=== PATIENT | female | born 2000 | race Caucasian/White ===

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

== ENCOUNTER → 2019-09-27 | Outpatient (CLI) | payer MEDICAID ==
[~2019-09-27] MED LIST changes: +ACET-78 PO
--- NOTE | 2019-09-27 11:02 | Diagnostic Imaging Report ---
INDICATION: Size and dates. TECHNIQUE: Multiple real-time grayscale images were obtained over the gravid uterus. COMPARISON: None FINDINGS: There is a single living intrauterine . Amniotic fluid index is 16.28. Placenta is posterior and right. There is no previa. Anatomical survey is unremarkable apart from somewhat limited view of the four-chambered heart. Heart rate is 142 bpm. Cervical length is 6.9 cm. Biometrical measurements are as follows: Biparietal 4.58 cm, age 19 weeks 6 days. Head circumference 17.09 cm, age 19 weeks 5 days. Abdominal circumference 14.41 cm, age 19 weeks 6 days. Femur length 3.36 cm, age 20 weeks 4 days. Sonographic estimate age: 20 weeks 0 days. Sonographic estimated date of delivery: 02/14/2020. Estimated Weight: 330 gm (+/- 48 gm). LMP percentile: 26%. heart rate: 142 beats per minute. number: 1 of 1. IMPRESSION: Single living intrauterine with sonographically estimated gestational age of 20 weeks 0 days and estimated date of confinement February 14, 2020. Suboptimal images of the four-chambered heart due to lie. Otherwise, unremarkable anatomical survey. Dictated by: Dictated on workstation # [id number]
== END ==
LOC: RAD 09:45
PROVIDERS: ATTEND Obstetrics & Gynecology
DX: Z34.92 Encounter for supervision of normal pregnancy, unspecified, second trimester (principal); Z3A.20 20 weeks gestation of pregnancy
CPT/HCPCS: 76805

== ENCOUNTER → 2019-12-09 | Outpatient (CLI) | payer MEDICAID ==
--- NOTE | 2019-12-09 12:07 | Diagnostic Imaging Report ---
INDICATION: Follow-up four-chamber heart and growth. TECHNIQUE: Multiple real-time grayscale images were obtained over the gravid uterus. COMPARISON: 09/27/2019. FINDINGS: There is a single live fetus in a transverse presentation, head to the maternal left. heart rate was visualized but not recorded. Placenta is posterior. Cervical length is 5.8 cm. Four-chamber heart view was visualized. Biometrical measurements are as follows: Biparietal 7.97 cm, age 32 weeks 0 days. Head circumference 28.78 cm, age 31 weeks 5 days. Abdominal circumference 26.54 cm, age 30 weeks 5 days. Femur length 5.82 cm, age 30 weeks 3 days. Sonographic estimate age: 31 weeks 2 days. Sonographic estimated date of delivery: 02/08/2020. Estimated Weight: 1639 gm (+/- 239 gm). LMP percentile: 35%. heart rate: N/A beats per minute. number: 1 of 1. IMPRESSION: Single live IUP of approximately 31 weeks gestational age, showing normal interval growth when compared with prior exam. A four-chamber heart view was visualized on today's exam. Dictated by: Dictated on workstation # [id number]
== END ==
LOC: RAD 10:50
PROVIDERS: ATTEND Obstetrics & Gynecology
DX: O16.3 Unspecified maternal hypertension, third trimester (principal); O09.292 Supervision of pregnancy with other poor reproductive or obstetric history, second trimester; R21 Rash and other nonspecific skin eruption; Z04.89 Encounter for examination and observation for other specified reasons; Z3A.31 31 weeks gestation of pregnancy
CPT/HCPCS: 76805

== ENCOUNTER 2020-01-28 12:24 | Inpatient (IN) | payer MEDICAID ==
[2020-01-28] VITALS (44 sets, daily range): BP systolic 100–141; BP diastolic 51–70
[~2020-01-28] VITALS: Ht 157.5 cm; Wt 85.5 kg
--- NOTE | 2020-01-28 12:33 | NUR ---
YANIRA DODGE presented to unit via AMBULATORY from ED, accompanied by S/O, with c/o DEMISE. YANIRA DODGE weighed, gowned, voided, and to bed. EFHM and TOCO applied, VS taken. YANIRA DODGE oriented to bed controls, call light, TV, heat, and A/C controls.
[2020-01-28] MEDS ORDERED: OXYTOCIN PRE-MIX DRIP 500 ML IV SCH (12:35)
[2020-01-28] MEDS ORDERED: ALPRAZolam 0.5 MG (XANAX) TAB PO PRN (12:45)
[2020-01-28] MEDS ORDERED: MISOPROSTOL 200 MCG (CYTOTEC) TABLET PO ONE (12:45)
[2020-01-28] MEDS ORDERED: HYDROmorphone 2 MG/ML VIAL (DILAUDID) IV PRN (12:45)
[2020-01-28 13:15] LABS: BASOPHILS % (AUTO) 0 % (0-10); EOSINOPHILS # (AUTO) 0.1 10^3/uL (0.0-0.3); EOSINOPHILS % (AUTO) 1 % (0-10); HEMATOCRIT 34 % (35-52); HEMOGLOBIN 11.3 G/DL (11.5-16.0); LYMPHOCYTES # (AUTO) 2.7 X 10^3 (1.0-4.0); LYMPHOCYTES % (AUTO) 16 % (12-44); MEAN CORPUSCULAR HEMOGLOBIN 29 PG (25-34); MEAN CORPUSCULAR HGB CONC 33 G/DL (32-36); MEAN CORPUSCULAR VOLUME 88 FL (80-99); MEAN PLATELET VOLUME 10.4 FL (7.4-10.4); MONOCYTES # (AUTO) 1.5 X 10^3 (0.0-1.0); MONOCYTES % (AUTO) 9 % (0-12); NEUTROPHILS # (AUTO) 12.4 X 10^3 (1.8-7.8); NEUTROPHILS % (AUTO) 74 % (42-75); PLATELET COUNT 231 10^3/uL (130-400); WHITE BLOOD COUNT 16.6 10^3/uL (4.3-11.0)
[2020-01-28 13:23] LABS: AMPHETAMINE SCREEN, URINE NEGATIVE (NEGATIVE); BARBITURATE SCREEN URINE NEGATIVE (NEGATIVE); BENZODIAZEPINES SCREEN URINE NEGATIVE (NEGATIVE); CANNABINOID SCREEN, URINE NEGATIVE (NEGATIVE); COCAINE SCREEN URINE NEGATIVE (NEGATIVE); METHADONE STAT NEGATIVE (NEGATIVE); METHAMPHETAMINE SCREEN URINE S NEGATIVE (NEGATIVE); OPIATE SCREEN URINE NEGATIVE (NEGATIVE); OXYCODONE STAT NEGATIVE (NEGATIVE); PROPOXYPHENE STAT NEGATIVE (NEGATIVE); TRICYCLIC ANTIDEPRESSANTS SCRE NEGATIVE (NEGATIVE)
--- NOTE | 2020-01-28 13:28 | History & Physical-OB ---
OB - Chief Complaint & HPI Date/Time Date of Admission: Date of Admission: Jan 28, 2020 at 12:24 pm Date seen by a Provider: Jan 28, 2020 Time Seen by a Provider: 11:35 Chief Complaint/History OB-Reason for Admission/Chief: Hx : 3 Hx Para: 2 Expected Date of Delivery: Feb 11, 2020 Gestational Age in Weeks: 38 Gestational Age in Days: 0 Indication for induction: other (IUFD) Admission Nurse Assessment Rev: Yes History of Labs A neg Antibody neg RI RPR NR HBsAg NR HIV NR GC neg GBS neg Allergies and Home Medications Allergies Coded Allergies: No Known Drug Allergies (Unverified , 01/15/13) Home Medications Acetaminophen 500 Mg Tablet, 1,000 MG PO Q6HR Prescribed by: ROMMEL MCGOVERN on 10/13/18 1042 Calcium Carbonate 1,177 Mg Tab.chew, 1,177 MG PO TID, (Reported) Ferrous Sulfate 325 Mg Tablet, 325 MG PO DAILY, (Reported) Ibuprofen 600 Mg Tablet, 600 MG PO Q6HR Prescribed by: ROMMEL MCGOVERN on 10/13/18 1042 Vit No.124/Iron/FA 1 Each Tablet, 1 EACH PO DAILY, (Reported) Patient Home Medication List Home Medication List Reviewed: Yes OB - History Hx of Present Care: Yes Ultrasounds: Abnormal US findings (Absent cardiac activity on US, no cord blood movement noted.) Obstetrical Complications: None Medical Complications: None Obstetrical History Hx Termination: No Hx Multiple Gestation: No Hx Stillbirth: No Hx Complication: No Hx Induced Hypertens: No Hx Maternal Gestational Diabet: No Delivery History Hx Dystocia: No Hx Large For Gestational Age I: Yes Hx Small for Gestational Age I: No Hx Section: No Hx Vaginal Delivery Post C-Sec: No Hx Blood Disorders: No Patient Past Medical History NC Social History/Family History HIV/AIDS: No Sexually Transmitted Disease: No Immunizations Hepatitis A: No Hepatitis B: Yes Tetanus Booster (TDap): Less than 5yrs OB - Admission Exam Physical Exam HEENT: NCAT Heart: Rhythm Normal Lungs: Clear Abdomen: Gravid Extremities: Normal Reflexes: Normal Cervical Dilatation: 1cm Effacement: 75% Station: -1 Membranes: Intact Labs Laboratory Tests Test 01/28/20 12:58 Range/Units White Blood Count 16.6 H 4.3-11.0 10^3/uL Red Blood Count 3.89 L 4.35-5.85 10^6/uL Hemoglobin 11.3 L 11.5-16.0 G/DL Hematocrit 34 L 35-52 % Mean Corpuscular Volume 88 80-99 FL Mean Corpuscular Hemoglobin 29 25-34 PG Mean Corpuscular Hemoglobin Concent 33 32-36 G/DL Red Cell Distribution Width 14.8 H 10.0-14.5 % Platelet Count 231 130-400 10^3/uL Mean Platelet Volume 10.4 7.4-10.4 FL Neutrophils (%) (Auto) 74 42-75 % Lymphocytes (%) (Auto) 16 12-44 % Monocytes (%) (Auto) 9 0-12 % Eosinophils (%) (Auto) 1 0-10 % Basophils (%) (Auto) 0 0-10 % Neutrophils # (Auto) 12.4 H 1.8-7.8 X 10^3 Lymphocytes # (Auto) 2.7 1.0-4.0 X 10^3 Monocytes # (Auto) 1.5 H 0.0-1.0 X 10^3 Eosinophils # (Auto) 0.1 0.0-0.3 10^3/uL Basophils # (Auto) 0.0 0.0-0.1 10^3/uL OB - Assessment/Plan/Diagnosis Assessment Assessment: induction of labor Admission Dx 19 yo @ 38 weeks IUFD GBS neg Admission Status: Inpatient Order (span 2 midnights) Reason for Inpatient Admission: IUFD at 38 weeks Plan Plan: Induction PAULA DOUGLASS DO Jan 28, 2020 1:28 pm
[2020-01-28 13:30] LABS: BAND NEUTROPHILS 6 %; EOSINOPHILS % (MANUAL) 1 %; LYMPHOCYTES % (MANUAL) 18 %; MONOCYTES % (MANUAL) 9 %; NEUTROPHILS % (MANUAL) 63 %
[2020-01-28 13:31] LABS: ANISOCYTOSIS SLIGHT; ATYPICAL LYMPHOCYTES 1 %; REACTIVE LYMPHOCYTES 2 %
[2020-01-28 13:32] LABS: ALANINE AMINOTRANSFERASE 7 U/L (0-55); ALBUMIN 3.6 GM/DL (3.2-4.5); ALKALINE PHOSPHATASE 116 U/L (40-136); BILIRUBIN,TOTAL 0.3 MG/DL (0.1-1.0); BUN/CREATININE RATIO 14; CALCIUM 9.5 MG/DL (8.5-10.1); CARBON DIOXIDE 17 MMOL/L (21-32); CHLORIDE 107 MMOL/L (98-107); CREATININE SERUM 0.56 MG/DL (0.60-1.30); GFR ESTIMATED > 60; GLUCOSE 81 MG/DL (70-105); POTASSIUM 3.9 MMOL/L (3.6-5.0); SODIUM 135 MMOL/L (135-145); TOTAL PROTEIN 7.2 GM/DL (6.4-8.2)
[2020-01-28] MEDS ORDERED: fentaNYL 2 mcg/ml BUPIVA 0.125 100 ML ONE (13:37)
[2020-01-28] MEDS ORDERED: CATHETER FLUSH 10 ML SYR IV SCH (14:00)
[2020-01-28] MEDS ORDERED: fentaNYL INJECTION 100 MCG/2 ML AMP ONE (14:08)
[2020-01-28] MEDS: D5 LR IV SOLUTION 1,000 ML IV SCH ×2 (14:25→22:18)
[2020-01-28] MEDS: EPIDURAL (fentaNYL 2 MCG/ML BUPIVA 0.125%)100 ML BAG EPI PRN ×2 (14:37→22:19)
[2020-01-28] MEDS ORDERED: DIPH25CA79 PO (15:03)
[2020-01-28] MEDS ORDERED: FLUT9.9S NS (15:03)
[2020-01-28] MEDS ORDERED: LACTATED RINGERS 1,000 ML IV ONE ×2 (15:05)
[2020-01-28] MEDS ORDERED: fentaNYL INJECTION 100 MCG/2 ML AMP INJ ONE (15:15)
[2020-01-28] MEDS ORDERED: NALOXONE 0.4 MG/ML 1 ML (NARCAN) VIAL IV PRN (15:15)
[2020-01-28] MEDS ORDERED: ONDANSETRON 4 MG/2 ML (SDV) Z0FRAN IV PRN (15:15)
--- NOTE | 2020-01-28 19:50 | NUR ---
Dr. Henning called unit and spoke to this RN for update on patient. Will notify with SVE.
--- NOTE | 2020-01-28 19:57 | NUR ---
Dr. Henning notified of SVE. No new orders at this time.
[2020-01-29] VITALS (19 sets, daily range): BP systolic 101–139; BP diastolic 53–90
[2020-01-29] MEDS ORDERED: OXYTOCIN PRE-MIX DRIP 500 ML IV SCH (02:13)
[2020-01-29] MEDS ORDERED: WITCH HAZEL(TUCKS) 40 EA JAR TOP PRN (02:15)
[2020-01-29] MEDS ORDERED: TETANUS,DIPTH,PERTUSS P/F (BOOSTRIX) 0.5 ML VIAL IM ONE (02:15)
[2020-01-29] MEDS ORDERED: MEASLES,MUMPS,RUBELLA 1 EA INJ SQ ONE (02:15)
[2020-01-29] MEDS ORDERED: BENZOCAINE/MENTHOL (DERMOPLAST) 60 ML CAN TP PRN (02:15)
--- NOTE | 2020-01-29 02:21 | OB Labor & Delivery Record ---
L&D History Date of Service Date of Service: Jan 29, 2020 History Expected Date of Delivery: Feb 11, 2020 Gestational Age in Weeks: 38 Hx : 3 Hx Para: 2 Complications Events: Routine care (IUFD found at 38 weeks) Operative Indications (Cesarea: N/A-Vaginal Delivery Intrapartal Events: None (IUFD) L&D Stage1 Stage One Onset of Labor - Date: Jan 28, 2020 Monitors and Tracing Monitor Mode: None Heart Rate: 0 Presentation: Vertex Vital Signs VS - Last 72 Hours, by Label 01/28/20 01/28/20 01/28/20 01/28/20 14:06 14:17 14:20 14:23 Temp 37.4 Pulse 109 111 110 112 Resp 18 18 18 18 B/P (MAP) 118/59 (78) 130/56 (80) 121/60 (80) Pulse Ox 98 98 98 97 O2 Delivery Room Air Room Air Room Air Room Air 01/28/20 01/28/20 01/28/20 01/28/20 14:26 14:29 14:32 14:36 Pulse 109 104 126 114 Resp 18 18 18 18 B/P (MAP) 117/58 (77) 117/55 (75) 130/70 (90) 122/64 (83) Pulse Ox 97 97 99 96 O2 Delivery Room Air Room Air Room Air Room Air 01/28/20 01/28/20 01/28/20 01/28/20 14:39 14:57 15:15 15:30 Pulse 113 108 97 99 Resp 18 18 18 18 B/P (MAP) 113/53 (73) 120/63 (82) 110/57 (74) 115/57 (76) Pulse Ox 97 96 96 96 O2 Delivery Room Air Room Air Room Air Room Air 01/28/20 01/28/20 01/28/20 01/28/20 15:45 16:04 16:32 16:48 Pulse 100 106 102 106 Resp 18 18 18 18 B/P (MAP) 105/59 (74) 109/55 (73) 110/57 (74) 102/58 (73) Pulse Ox 95 95 96 95 O2 Delivery Room Air Room Air Room Air Room Air 01/28/20 01/28/20 01/28/20 01/28/20 17:01 17:16 17:34 17:48 Pulse 107 108 111 106 Resp 18 18 18 18 B/P (MAP) 113/64 (80) 121/63 (82) 141/61 (87) 109/57 (74) Pulse Ox 96 98 96 96 O2 Delivery Room Air Room Air Room Air Room Air 01/28/20 01/28/20 01/28/20 01/28/20 18:11 18:18 18:32 18:47 Pulse 106 104 99 111 Resp 18 18 18 18 B/P (MAP) 125/57 (79) 118/56 (76) 110/58 (75) 120/56 (77) Pulse Ox 96 97 97 96 O2 Delivery Room Air Room Air Room Air Room Air 01/28/20 01/28/20 01/28/20 01/28/20 19:00 19:15 19:30 19:45 Temp 37.3 Pulse 107 104 103 108 Resp 18 18 18 16 B/P (MAP) 112/59 (76) 112/59 (76) 100/57 (71) 106/55 (72) Pulse Ox 95 96 97 95 O2 Delivery Room Air Room Air Room Air Room Air 01/28/20 01/28/20 01/28/20 01/28/20 20:00 20:15 20:30 20:45 Pulse 102 104 112 113 Resp 16 16 16 16 B/P (MAP) 106/51 (69) 111/53 (72) 113/53 (73) 109/53 (71) Pulse Ox 98 97 97 96 O2 Delivery Room Air Room Air Room Air Room Air 01/28/20 01/28/20 01/28/20 01/28/20 21:00 21:15 21:30 21:45 Temp 36.7 Pulse 109 104 103 109 Resp 16 16 16 16 B/P (MAP) 109/59 (76) 112/56 (74) 111/58 (75) 107/55 (72) Pulse Ox 96 96 96 96 O2 Delivery Room Air Room Air Room Air Room Air 01/28/20 22:00 Pulse 111 Resp 16 B/P (MAP) 112/57 (75) Pulse Ox 96 O2 Delivery Room Air Rupture of Membranes Spontaneous Ruture of Membrane: No Amniotic Membrane Rupture Time: 1704 Amniotic Membrane Fluid Desc.: Clear Vaginal Bleeding Description: Normal Show Induction/Anesthesia Epidural Cath Placement - Time: 1428 Progress/Notes Patient confirmed in office with US to have IUFD. Admitted and given 200 mcg misoprostol, followed by Pitocin per protocol and AROM(clear fluid). She received an epidural and progressed to complete and + 2 station with minimal discomfort L&D Stage2 Stage Two Stage II Date: Jan 29, 2020 Monitors and Tracing Monitor Mode: None Heart Rate: 0 Position: Right Occiput Anterior Presentation: Vertex Cord Descript/Complications Cord Vessel Description: 3 Vessels Delivery Type Delivery Method: Spontaneous Vaginal Episiotomy/Perineal Laceration Laceraction(s)/Extensions: No Condition of Infant Delivery 1 minute Comment: 0 5 minute Comment: 0 Notes Still born male infant, weight pending Condition of Infant Condition of : Stillborn Exam: No Observed Abnormalities L&D Stage3 Stage Three Stage III Date: Jan 29, 2020 Pictocin Pitocin Administration mu/min: 14 Pitocin ml/hr: 14 Pitocin Administration Comment: 30 mu wide open after delivery of placenta Anerobic and aerobic cultures collected of both maternal and side of placenta Placenta Delivery Placenta Delivery: Spontaneous Delivery Summary Summary Estimated blood loss (mL): 200 Attending at delivery: Paula Douglass DO Condition of Delivery Examined: Cervix Examined, Uterus Explored Post Hemorrhage: No Condition of Mother stable Condition of Infant (s) PAULA DOUGLASS DO Jan 29, 2020 02:21
[2020-01-29] MEDS ORDERED: IBUPROFEN 600 MG (MOTRIN) TAB PO ONE (02:32)
[2020-01-29] MEDS: IBUPROFEN 600 MG (MOTRIN) TAB PO SCH ×2 (02:39→08:44)
[2020-01-29] MEDS: HYDROcodone/APAP 5 MG/325 MG (LORTAB) TAB PO PRN ×2 (02:39→08:43)
[2020-01-29] MEDS ORDERED: CATHETER FLUSH 10 ML SYR IV SCH (06:00)
--- NOTE | 2020-01-29 06:00 | NUR ---
Patient assisted to wheelchair, Right leg still numb and patient unable to bear compete weight on it. Patient transferred to room 303 via wheelchair, accompanied by staff and . Patient assisted from wheelchair to toilet. Positive void noted. Patient assisted back to wheelchair and then to bed. Patient oriented to room, call light, thermostat, and dietary menu. Infant in cuddle cot at bedside. No questions or concerns voiced at this time.
[2020-01-29] MEDS ORDERED: PRENATAL VITAMIN 1 EA TAB PO SCH (07:00)
--- NOTE | 2020-01-29 07:00 | NUR ---
REPORT FROM CHARLIE MCELROY
--- NOTE | 2020-01-29 07:30 | NUR ---
CONDOLENCE TRAY ORDERED, INITIAL ASSESSMENT COMPLETED, SEE INTERVENTIONS FOR DETAILED ASSESSMENTS, INFANT REMAINS AT PARENTS BEDSIDE, MOTHER VERY TEARFUL, EMOTIONAL SUPPORT OFFERED.
--- NOTE | 2020-01-29 07:40 | Discharge Inst-Women's Service ---
Discharge Inst-Women's Serv Depart Medication/Instructions New, Converted or Re-Newed RX: RX on Chart Final Diagnosis PPD 0 IUFD Vaginal delivery Problems Reviewed?: Yes Consults/Follow Up Additional Follow Up: Yes Orders/Referrals Dr. Proctor in 6 weeks Activity Activity: Activity as Tolerated Driving Instructions: No Driving for 1 Week NO SMOKING: NO SMOKING Nothing Inside Vagina: No Douching, No [place], No Tampons Diet Discharge Diet: No Restrictions Symptoms to Report to : Bleeding Excessive, Pain Increased, Fever Over 101 Degrees F, Vaginal Bleeding Increase, Questions/Concerns For Any Problems or Questions: Contact Your Physician PAULA DOUGLASS DO Jan 29, 2020 07:40
[2020-01-29] MEDS ORDERED: ALPR0.5T7 PO (07:42)
[2020-01-29] MEDS ORDERED: DCS100C PO (07:42)
[2020-01-29] MEDS ORDERED: BENZ78AE5 TP (07:42)
[2020-01-29] MEDS ORDERED: IBUP-844 PO (07:42)
[2020-01-29] MEDS ORDERED: ACHD5005 PO (07:42)
--- NOTE | 2020-01-29 07:45 | NUR ---
IV DC'D, PT UP TO SHOWER.
--- NOTE | 2020-01-29 08:00 | NUR ---
DR DOUGLASS HERE NEW ORDERS RECEIVED, [facility] CALLED, CHARGE POSTER NOTIFIED BY PHONE.
--- NOTE | 2020-01-29 08:20 | NUR ---
MEDICAL RECORDS HERE FOR CERTIFICATE
--- NOTE | 2020-01-29 08:35 | NUR ---
DR SNYDER CALLED VISITED WITH THIS RN ABOUT DEMISE.
--- NOTE | 2020-01-29 08:45 | NUR ---
[facility] HERE
[2020-01-29] MEDS ORDERED: FERROUS SULF 325 MG (IRON) TAB PO SCH (09:00)
[2020-01-29] MEDS ORDERED: DOCUSATE SODIUM 100 MG (COLACE) CAP PO SCH (09:00)
--- NOTE | 2020-01-29 09:05 | NUR ---
PAIN MEDICINE PHYSICIAN HERE, MORTUARY RELEASE SIGNED BY MOTHER, AUTOPSY RELEASE REFUSED, PHOTO TOUCH UPS BY NOW I LAY ME DOWN TO SLEEP SIGNED BY MOTHER.
--- NOTE | 2020-01-29 09:35 | NUR ---
CM/SS: Visited with pt and spouse as per consult related to miscarriage and demise Plan: Pt will return home and baby will be released to the Home Summary: Pt is holding the child at the time of the visit. Pt is tearful and spouse is at the bedside. This worker offers emotional support and discusses physician follow up as well as self care and mental health counseling if needed, mother reports having been in counseling before. Both verbalize understanding. Pt reports that baby is bleeding and does want to change his blankets. This worker goes and gets two blankets from staff, and returns to the room. Mom does rewrap baby and holds the child very close to her. She continues to be tearful. Mother does indicate that she has support with her family in the area[place] [place]) spouse reports he has family an hour away and a few friends in the area. He also reports the story is a long one about his family, and shares he would not go into it at this time. They are reminded they are fortunate to have each other. Spouse has two other children that he is unable to see, as they are in the custody of their mothers. They report it was so close to time of delivery and upon going to the appointment there was not heartbeat, so unexpected. They are encouraged that many parents have been able to try again in the future after a loss. They seemed a little encouraged by this. This worker continues to be present to allow them time. They both are tearful. This worker shares with them she will allow them some time alone and ended the visit. Follow up/information given to the assigned RN for pt.
--- NOTE | 2020-01-29 10:37 | Anesthesia-Regional Post-Op ---
Regional Patient Condition Mental Status: Alert, Oriented x3 Circulation: Same as Pre-Op Headache: Absent Sensation: Full Recovery Motor Block: Absent Post Op Complications Complications None Follow Up Care/Instructions Patient Instructions None needed. Anesthesia/Patient Condition Patient is doing well, no complaints, stable vital signs, no apparent adverse anesthesia problems. No complications reported per nursing. D/C home per [facility] [place] Criteria: Yes CLEMENTE HARLEY CRNA Jan 29, 2020 10:37
--- NOTE | 2020-01-29 12:10 | NUR ---
RHOGAM GIVEN PER ORDER
--- NOTE | 2020-01-29 12:15 | NUR ---
DISCHARGE INSTRUCTIONS EXPLAINED TO PT, PT VERBALIZES UNDERSTANDING, SIGNED, NO QUESTIONS NOTED. WAITING ON FAMILY TO PICK THEM UP.
--- NOTE | 2020-01-29 12:50 | NUR ---
YANIRA DODGE demonstrates understanding of discharge instructions and accurately returns instructions upon questioning. Copy of Post-Discharge Instructions given to PT. YANIRA DODGE is able to manage continuing needs after discharge. Patients belongings returned to . Patient discharged from 330- on 01/29/20 at 1250. YANIRA DODGE left floor via , accompanied by . [facility] CALLED FOR . TAKEN TO [facility] WITH THIS RN [facility] ARRIVES.
== END 2020-01-29 12:50 | disposition home or self-care (01) | DRG 807 ==
LOC: LDRP 12:24
PROVIDERS: ADMIT Obstetrics & Gynecology; ATTEND Obstetrics & Gynecology
PROC: 3E0DXGC Introduction of Other Therapeutic Substance into Mouth and Pharynx, External Approach (ICD-10-PCS; 2020-01-28)
PROC: 10E0XZZ Delivery of Products of Conception, External Approach (ICD-10-PCS; principal; 2020-01-29)
DX: O36.4XX0 Maternal care for intrauterine death, not applicable or unspecified (principal); Z37.1 Single stillbirth; Z3A.38 38 weeks gestation of pregnancy
CPT/HCPCS: 36415; 80053; 80306; 81241; 83033; 83036; 85007; 85027; 85610; 85705; 85730; 86644; 86645; 86747; 86777; 86778; 86850; 86900; 86901; 87070; 87075; 87205

== ENCOUNTER 2020-06-09 02:18 | Emergency (ER) | payer MEDICAID ==
[~2020-06-09] VITALS: Ht 157.4 cm; Wt 85.5 kg
[~2020-06-09 02:18] MED LIST changes: +ALPR0.5T7 PO; +BENZ78AE5 TP; +DCS100C PO; +DIPH25CA79 PO; +FLUT9.9S NS
[2020-06-09 03:20] VITALS: BP_SYST 117; BP_SYST 120; BP_SYST 128; BP_DIAS 74; BP_DIAS 91; BP_DIAS 96
--- NOTE | 2020-06-09 04:44 | ED Psychosocial ---
General Chief Complaint: General Problems/Pain Stated Complaint: CHEST TIGHTNESS,DIZZY,WEAK,FEELS LIKE BLACKING OUT Source: patient Exam Limitations: no limitations History of Present Illness Date Seen by Provider: Jun 09, 2020 Time Seen by Provider: 04:09 Initial Comments Patient presents ER by private conveyance with chief complaint of while she was laying down around 2 or 3:00 in the morning and watching TV she started feeling panicky and when she stood up her heart started racing palpating in her chest. She says this lasted for a few seconds to minutes and went away spontaneously and has came back a few times just lasting a few minutes at the most. She does have anxiety but says she is never had panic attacks this bad before. She does not take anything to abort panics. She follows with Dr. Morales. She is not on control presently. He denies any history of heart disorders but says her mom has had to have stents and peripheral stents and smokes. The patient states she smokes as well. She is worried that because of her mother's medical history that she will be having a heart attack tonight. She denies a history of pots. S she has been referred to one of the local surgeons for her diarrhea since Jan concern for IBS. She has several family members with IBS. Allergies and Home Medications Allergies Coded Allergies: No Known Drug Allergies (Unverified , 01/15/13) Home Medications Alprazolam 0.5 Mg Tablet, 0.5 MG PO Q8H PRN for ANXIETY Prescribed by: PAULA DOUGLASS on 01/29/20 0742 Benzocaine/Menthol 78 Gm Aerosol, 56 ML TP UD PRN for PAIN- SEE INSTRUCTIONS Prescribed by: PAULA DOUGLASS on 01/29/20741 Calcium Carbonate 1,177 Mg Tab.chew, 1,177 MG PO TID, (Reported) Docusate Sodium 100 Mg Capsule, 100 MG PO BID PRN for CONSTIPATION-1ST LINE Prescribed by: PAULA DOUGLASS on 01/29/20 07 Fluticasone Propionate 9.9 Ml [place].susp, 1 SPRAY NS DAILY, (Reported) 1 SPRAY EACH NARE DAILY Hydrocodone/Acetaminophen 1 Each Tablet, 1 TAB PO Q4H PRN for PAIN-MODERATE (5- 7) Prescribed by: PAULA DOUGLASS on 01/29/20 0742 Ibuprofen 600 Mg Tablet, 600 MG PO Q6HR Prescribed by: PAULA DOUGLASS on 01/29/20 0742 Vit No.124/Iron/FA 1 Each Tablet, 1 EACH PO DAILY, (Reported) Patient Home Medication List Home Medication List Reviewed: Yes Review of Systems Constitutional: No chills, No diaphoresis; dizziness (On standing) EENTM: No ear discharge, No ear pain Respiratory: No cough, No short of breath Cardiovascular: see HPI, chest pain; No Hx of Intervention; palpitations; No syncope Gastrointestinal: No abdominal pain, No constipation, No diarrhea, No nausea, No vomiting Genitourinary: No discharge, No dysuria : No Control/STD Prophylaxis: None Musculoskeletal: No back pain, No joint pain Skin: No pruritus, No rash Psychiatric/Neurological: Denies Headache, Denies Numbness All Other Systems Reviewed Negative Unless Noted: Yes Past Lnygick-Ufrwqi-Xdorlv Hx Patient Social History Alcohol Use: Denies Use Smoking Status: Current Everyday Smoker Type Used: Cigarettes Recent Hopitalizations: No Immunizations Up To Date Tetanus Booster (TDap): Less than 5yrs PED Vaccines UTD: Yes Seasonal Allergies Seasonal Allergies: No Past Medical History Surgeries: Yes Respiratory: Yes Asthma Cardiac: No Neurological: No Female Reproductive Disorders: Denies Sexually Transmitted Disease: No HIV/AIDS: No Genitourinary: No Gastrointestinal: No Gastroesophageal Reflux, Gall Bladder Disease Musculoskeletal: No Endocrine: No HEENT: No Loss of Vision: Denies Hearing Impairment: Denies Cancer: No Psychosocial: Yes Anxiety, Bipolar, Depression Integumentary: No Blood Disorders: No Adverse Reaction/Blood Tranf: No Family Medical History Alcoholism PATERNAL GRANDFATHER Arthritis MATERNAL GRANDMOTHER PATERNAL GRANDFATHER Cardiovascular disease 19 MOTHER MATERNAL GRANDMOTHER Cataracts MATERNAL GRANDMOTHER Completed stroke MATERNAL GRANDMOTHER Coronary thrombosis 19 MOTHER MATERNAL GRANDMOTHER Deafness or hearing loss PATERNAL GRANDFATHER Diabetes mellitus MATERNAL GRANDMOTHER PATERNAL GRANDMOTHER FH: macular degeneration MATERNAL GRANDMOTHER Headache disorder 19 MOTHER Hypertension MATERNAL GRANDMOTHER Leukemia MATERNAL GRANDMOTHER Myocardial infarction 19 MOTHER MATERNAL GRANDMOTHER Severe allergy G8 SISTER (BEES) Thyroid disease 19 MOTHER MATERNAL GRANDMOTHER Visual disorder MATERNAL GRANDMOTHER Physical Exam Capillary Refill : Height, Weight, BMI Height: 5'3.00" Weight: 182lbs. 0.0oz. 82.051483wj; 34.46 BMI Method:Stated General Appearance: WD/WN, no apparent distress HEENT: PERRL/EOMI, pharynx normal, TM abnormal (R) (Clear mucoid effusion without bulging, injection or erythema bilaterally), TM abnormal (L) Neck: full range of motion, normal inspection Respiratory: lungs clear, normal breath sounds, no respiratory distress, no accessory muscle use Cardiovascular: normal peripheral pulses, regular rate, rhythm, no edema, no murmur Peripheral Pulses: 2+ Radial Pulses (R), 2+ Radial Pulses (L) Neurologic/Psychiatric: no motor/sensory deficits, alert, oriented x 3, other (Flat affect) Behavior/Eye Contact: cooperative, normal speech, avoids eye contact Thoughts/Hallucinations: normal thought pattern, no apparent hallucination Progress/Results/Core Measures Results/Orders Lab Results Laboratory Tests Test 06/09/20 03:47 Range/Units White Blood Count 10.4 4.3-11.0 10^3/uL Red Blood Count 4.75 3.80-5.11 10^6/uL Hemoglobin 14.2 11.5-16.0 g/dL Hematocrit 42 35-52 % Mean Corpuscular Volume 88 80-99 fL Mean Corpuscular Hemoglobin 30 25-34 pg Mean Corpuscular Hemoglobin Concent 34 32-36 g/dL Red Cell Distribution Width 12.3 10.0-14.5 % Platelet Count 269 130-400 10^3/uL Mean Platelet Volume 10.8 9.0-12.2 fL Immature Granulocyte % (Auto) 0 % Neutrophils (%) (Auto) 43 42-75 % Lymphocytes (%) (Auto) 44 12-44 % Monocytes (%) (Auto) 10 0-12 % Eosinophils (%) (Auto) 2 0-10 % Basophils (%) (Auto) 1 0-10 % Neutrophils # (Auto) 4.5 1.8-7.8 10^3/uL Lymphocytes # (Auto) 4.6 H 1.0-4.0 10^3/uL Monocytes # (Auto) 1.0 0.0-1.0 10^3/uL Eosinophils # (Auto) 0.3 0.0-0.3 10^3/uL Basophils # (Auto) 0.1 0.0-0.1 10^3/uL Immature Granulocyte # (Auto) 0.0 0.0-0.1 10^3/uL Urine Color YELLOW Urine Clarity CLEAR Urine pH 6.5 5-9 Urine Specific [place] <=1.005 1.016-1.022 Urine Protein NEGATIVE NEGATIVE Urine Glucose (UA) NEGATIVE NEGATIVE Urine Ketones NEGATIVE NEGATIVE Urine Nitrite NEGATIVE NEGATIVE Urine Bilirubin NEGATIVE NEGATIVE Urine Urobilinogen 0.2 < = 1.0 MG/DL Urine Leukocyte Esterase NEGATIVE NEGATIVE Urine RBC (Auto) NEGATIVE NEGATIVE Urine RBC NONE /HPF Urine WBC 0-2 /HPF Urine Squamous Epithelial Cells 0-2 /HPF Urine Crystals NONE /LPF Urine Bacteria TRACE /HPF Urine Casts NONE /LPF Urine Mucus NEGATIVE /LPF Urine Culture Indicated NO Sodium Level 139 135-145 MMOL/L Potassium Level 3.5 L 3.6-5.0 MMOL/L Chloride Level 107 98-107 MMOL/L Carbon Dioxide Level 21 21-32 MMOL/L Anion Gap 11 5-14 MMOL/L Blood Urea Nitrogen 8 7-18 MG/DL Creatinine 0.75 0.60-1.30 MG/DL Estimat Glomerular Filtration Rate > 60 BUN/Creatinine Ratio 11 Glucose Level 108 H 70-105 MG/DL Calcium Level 9.0 8.5-10.1 MG/DL Corrected Calcium 8.7 8.5-10.1 MG/DL Total Bilirubin 0.2 0.1-1.0 MG/DL Aspartate Amino Transf (AST/SGOT) 21 5-34 U/L Alanine Aminotransferase (ALT/SGPT) 34 0-55 U/L Alkaline Phosphatase 61 40-136 U/L Troponin I < 0.028 <0.028 NG/ML C-Reactive Protein High Sensitivity 0.29 0.00-0.50 MG/DL Total Protein 8.0 6.4-8.2 GM/DL Albumin 4.4 3.2-4.5 GM/DL My Orders Orders - MALIK,MARIA INES J Cbc With Automated Diff (06/09/20 04:40) Comprehensive Metabolic Panel (06/09/20 04:40) Hs C Reactive Protein (06/09/20 04:40) Troponin I (06/09/20 04:40) Orthostatic Vital Signs (Adult (06/09/20 04:40) Continuous Ekg Monitoring (06/09/20 04:41) Ekg Tracing (06/09/20 04:41) Ua Culture If Indicated (06/09/20 04:44) Urine Bedside (06/09/20 04:44) Progress Progress Note #1: Time: 04:46 Progress Note We will get a set of orthostatic vital signs. She could have postural o rthostatic tachycardia syndrome since she stands up and it happens. She also could be having orthostatic hypotension. She has some mild effusions in her ears so a labyrinthitis could also be contributing to her symptoms with posture changes. Vital signs are unremarkable. She is asymptomatic at this time. He did some counseling and reassurance and taught her some cognitive behavioral therapy techniques. Offered hydroxyzine. She states she is really concerned she is having a heart attack and wants to be checked out so some basic labs to rule out pericarditis as well as EKG were ordered. We have strongly encouraged her to quit smoking and spent more than 10 minutes doing smoking cessation counseling. Progress Note #2: Time: 05:24 Progress Note Labs and orthostatic vital signs were unremarkable. We were unable to elicit a postural orthostatic/tachycardia syndrome. Patient is feeling better. We are going to put her out on Flonase and hydroxyzine. Initial ECG Impression Date: Jun 09, 2020 Initial ECG Impression Time: 03:39 Initial ECG Rate: 96 Initial ECG Rhythm: Normal Sinus Initial ECG Intervals: Normal Initial ECG Impression: Normal Comment Normal sinus rhythm without clinically relevant ST elevation or depression. Departure Impression Primary Impression: Anxiety attack Additional Impression: Labyrinthitis of both ears Disposition: 01 HOME, SELF-CARE Condition: Stable Departure-Patient Inst. Decision time for Depature: 05:32 Referrals: [facility] (PCP/Family) Primary Care Physician Patient Instructions: Anxiety, Adult ED, LOCAL PHYSICIAN LIST, Labyrinthitis Add. Discharge Instructions: If your symptoms come back you can try the hydroxyzine 1 tablet every 6 hours. You may also try the breathing techniques we discussed. In through your nose and out through your mouth. Plan to follow-up with a primary care provider to discuss further strategies to manage your palpitations, anxiety, chest pain and smoking. Your labyrinthitis will be improved over the next week or 2 by using fluticasone/Flonase 1 puff each nostril every day for the next 2 to 4 weeks. You may also use meclizine 1 tablet every 6 hours as necessary for dizziness. All discharge instructions reviewed with patient and/or family. Voiced understanding. Scripts Hydroxyzine HCl (Hydroxyzine HCl) 25 Mg Tablet 25 MG PO Q6H PRN for ANXIETY, #15 TAB 0 Refills Prov: MARIA INES GAN 06/09/20 MARIA INES GAN Jun 09, 2020 04:44
[2020-06-09 04:49] LABS: BASOPHILS # (AUTO) 0.1 10^3/uL (0.0-0.1); BASOPHILS % (AUTO) 1 % (0-10); EOSINOPHILS # (AUTO) 0.3 10^3/uL (0.0-0.3); EOSINOPHILS % (AUTO) 2 % (0-10); HEMATOCRIT 42 % (35-52); HEMOGLOBIN 14.2 g/dL (11.5-16.0); LYMPHOCYTES # (AUTO) 4.6 10^3/uL (1.0-4.0); LYMPHOCYTES % (AUTO) 44 % (12-44); MEAN CORPUSCULAR HEMOGLOBIN 30 pg (25-34); MEAN CORPUSCULAR HGB CONC 34 g/dL (32-36); MEAN CORPUSCULAR VOLUME 88 fL (80-99); MEAN PLATELET VOLUME 10.8 fL (9.0-12.2); MONOCYTES % (AUTO) 10 % (0-12); NEUTROPHILS # (AUTO) 4.5 10^3/uL (1.8-7.8); NEUTROPHILS % (AUTO) 43 % (42-75); PLATELET COUNT 269 10^3/uL (130-400); WHITE BLOOD COUNT 10.4 10^3/uL (4.3-11.0)
[2020-06-09 04:50] LABS: BILIRUBIN,URINE NEGATIVE (NEGATIVE); CLARITY,URINE CLEAR; COLOR,URINE YELLOW; GLUCOSE, URINE (UA) NEGATIVE (NEGATIVE); KETONES,URINE NEGATIVE (NEGATIVE); LEUKOCYTE ESTERASE ,URINE NEGATIVE (NEGATIVE); NITRITE,URINE NEGATIVE (NEGATIVE); PH,URINE 6.5 (5-9); PROTEIN,URINE NEGATIVE (NEGATIVE)
[2020-06-09 04:53] LABS: ALBUMIN 4.4 GM/DL (3.2-4.5)
[2020-06-09 04:54] LABS: CHLORIDE 107 MMOL/L (98-107); POTASSIUM 3.5 MMOL/L (3.6-5.0); SODIUM 139 MMOL/L (135-145)
[2020-06-09 04:56] LABS: GLUCOSE 108 MG/DL (70-105)
[2020-06-09 04:57] LABS: CARBON DIOXIDE 21 MMOL/L (21-32)
[2020-06-09 04:58] LABS: BILIRUBIN,TOTAL 0.2 MG/DL (0.1-1.0)
[2020-06-09 04:59] LABS: ALKALINE PHOSPHATASE 61 U/L (40-136); SQUAMOUS EPITHELIAL CELL,UR 0-2 /HPF
[2020-06-09 05:00] LABS: BACTERIA,URINE TRACE /HPF; CREATININE SERUM 0.75 MG/DL (0.60-1.30); GFR ESTIMATED > 60; WBC,URINE 0-2 /HPF
[2020-06-09 05:01] LABS: BUN/CREATININE RATIO 11
[2020-06-09 05:03] LABS: ALANINE AMINOTRANSFERASE 34 U/L (0-55)
[2020-06-09] MEDS ORDERED: HYDR-700 PO (05:37)
[2020-06-09 05:42] VITALS: BP 117/96
== END 2020-06-09 05:44 | disposition home or self-care (01) ==
LOC: EDUNIT# 02:18 → ER 02:22
DX: F41.9 Anxiety disorder, unspecified (principal); H83.03 Labyrinthitis, bilateral; F17.210 Nicotine dependence, cigarettes, uncomplicated; Z82.61 Family history of arthritis; Z82.49 Family history of ischemic heart disease and other diseases of the circulatory system; Z83.3 Family history of diabetes mellitus; Z80.6 Family history of leukemia
CPT/HCPCS: 36415; 80053; 81000; 84484; 84703; 85025; 86141; 93005

== ENCOUNTER → 2021-06-17 | Outpatient (CLI) | payer MEDICAID ==
[~2021-06-17] MED LIST changes: -DCS100C PO; +DOCU-239 PO; +HYDR-700 PO
--- NOTE | 2021-06-17 15:32 | Diagnostic Imaging Report ---
INDICATION: survey. TECHNIQUE: Multiple real-time grayscale images were obtained over the gravid uterus. COMPARISON: None FINDINGS: There is a single live fetus in a transverse presentation with head to maternal left. heart rate was recorded at 153 BPM. Placenta is posterior. Amniotic volume is normal. Cervical length is 5.3 cm. survey shows kidneys, bladder, and stomach to be unremarkable. brain is unremarkable. There is a four-chamber heart. There is a three-vessel cord with normal insertion. spine is unremarkable. Biometrical measurements are as follows: Biparietal 4.28 cm, age 19 weeks 0 days. Head circumference 17.44 cm, age 20 weeks 0 days. Abdominal circumference 14.70 cm, age 20 weeks 0 days. Femur length 3.40 cm, age 20 weeks 5 days. Sonographic estimate age: 20 weeks 0 days. Sonographic estimated date of delivery: 11/04/2021. Estimated Weight: 340 gm (+/- 50 gm). LMP percentile: 50%. heart rate: 153 beats per minute. number: 1 of 1. IMPRESSION: Single live IUP of 20 weeks 0 days gestational age. Estimated date of confinement sonographically is 11/04/2021. Dictated by: Dictated on workstation # [id number]
== END ==
LOC: RAD 12:00
PROVIDERS: ATTEND Nurse Practitioner Women's Health
DX: Z34.02 Encounter for supervision of normal first pregnancy, second trimester (principal); Z3A.20 20 weeks gestation of pregnancy
CPT/HCPCS: 76805

== ENCOUNTER 2021-08-13 01:33 | Outpatient (CLI) | payer MEDICAID ==
[~2021-08-13] VITALS: Ht 160 cm; Wt 82.0 kg
[2021-08-13 01:55] VITALS: BP 111/55
--- NOTE | 2021-08-16 08:17 | Physician Query-Final Dx ---
Clinic Account Progress/Dx Physician Query: Please give diagnosis Please include # weeks gestation Date of Service Aug 13, 2021 at 01:33 DEIRDRE,MayAug 16, 2021 08:17
== END 2021-08-13 02:50 | disposition home or self-care (01) ==
LOC: WSo 01:33 → LDRP 01:35 → WSo 02:50
PROVIDERS: ATTEND Obstetrics & Gynecology
DX: O36.8130 Decreased fetal movements, third trimester, not applicable or unspecified (principal); Z3A.28 28 weeks gestation of pregnancy
CPT/HCPCS: 99213

== ENCOUNTER → 2021-10-13 | Outpatient (CLI) | payer MEDICAID ==
--- NOTE | 2021-10-13 18:52 | Diagnostic Imaging Report ---
INDICATION: patient, previous history of intrauterine demise. TECHNIQUE: Multiple real-time grayscale images were obtained over the gravid uterus. COMPARISON: Prior OB sonography of 06/17/2021. FINDINGS: Single live intrauterine fetus is seen measuring 37 weeks 0 days in size. Amniotic fluid index is 14.7 cm. The fetus is in cephalic presentation. Placenta is anterior with no evidence of previa. heart rate is 156 bpm. Fetus scored 2 out of 2 in breathing, movement, posture and tone, and amniotic fluid index. Total score was 8 out of 8. Biometrical measurements are as follows: Biparietal 8.88 cm, age 36 weeks 0 days. Head circumference 33.19 cm, age 37 weeks 6 days. Abdominal circumference 34.16 cm, age 38 weeks 1 days. Femur length 7.02 cm, age 36 weeks 0 days. Sonographic estimate age: 37 weeks 0 days. Sonographic estimated date of delivery: 11/03/2021. Estimated Weight: 3172 gm (+/- 463 gm). LMP percentile: 65%. heart rate: 156 beats per minute. number: 1 of 1. IMPRESSION: Single live intrauterine fetus with normal interval growth compared to the previous study. biophysical profile score is 8 out of 8. Dictated by: Dictated on workstation # [id number]
== END ==
LOC: RAD 15:15
PROVIDERS: ATTEND Nurse Practitioner Women's Health
DX: O09.293 Supervision of pregnancy with other poor reproductive or obstetric history, third trimester (principal); Z3A.37 37 weeks gestation of pregnancy
CPT/HCPCS: 76805; 76819

== ENCOUNTER 2021-10-20 07:15 | Inpatient (IN) | payer MEDICAID ==
[~2021-10-20] VITALS: Ht 157.5 cm; Wt 88.4 kg
--- OUTSIDE RECORDS SUMMARY | 2021-10-20 18:40 | XMS REPORT | Clinical Summary ---
Author Author [facility] Address Unknown Phone Unavailable Care Team Providers Care Lubricating Specialist Name Role Phone Ant Sheridan MD [phone] Unassigned, None PCP Unavailable Allergies No known active allergies Medications End Date Status Medication Sig Dispensed Refills Start Date Active multivitamin Take 1 tablet 0 ( PLUS) 27-1 MG by mouth TABS daily. Active acetaminophen (TYLENOL) Take 650 mg 0 325 MG tablet by mouth every 6 (six) hours as needed for Mild Pain. Active Problems Patient Care Coordination Note , h/o LGA x2; ? Pre-eclampsia x2 and breech x1 per pt but not in previous records; vacuum-assisted vaginal del in G1 [facility] unsure FOB Dc [place] unsure Innatal neg, male - wants gender txr at 13 wks, records reviewed Problem Noted Date History of macrosomia in in prior , c urrently 08/09/2019 Overview: Formatting of this note might be differ ent from the original. G1 and G2 Short interval between pregnancies affecting pregnanc y, antepartum 08/09/2019 Family History Medical History Relation Comments Alcohol abuse Father Heart disease Maternal Aunt Hypertension Maternal Aunt Stroke Maternal Aunt Diabetes Maternal Grandmother Heart disease Maternal Grandmother Hypertension Maternal Grandmother Stroke Maternal Grandmother Thyroid disease Maternal Grandmother Cardiomyopathy Mother Heart disease Mother Hypertension Mother Ovarian cancer Mother Thyroid cancer Mother Thyroid disease Mother Alcohol abuse Paternal Grandfather Diabetes Paternal Grandfather Thyroid disease Paternal Grandmother Alcohol abuse Paternal Uncle Relation Status Comments Father Maternal Aunt Maternal Grandmother Mother Paternal Grandfather Paternal Grandmother Paternal Uncle Social History Date Tobacco Use Types Packs/Day Years Used Current Every Day Smoker Smokeless Tobacco: Never Used Comments Alcohol Use Standard Drinks/Week Not Currently 0 (1 standard drink = 0.6 o z pure alcohol) Control Partners Comments Sexually Active None Male Yes Sex Assigned at Date Recorded Not on file Last Filed Vital Signs Reading Time Taken Comments Vital Sign 122/68 08/09/2019 1:22 PM CDT Blood Pressure - - Pulse - - Temperature - - Respiratory Rate - - Oxygen Saturation - - Inhaled Oxygen Concentration 63.5 kg (140 lb) 08/09/2019 1:22 PM CDT Weight 156.2 cm (5' 1.5") 08/09/2019 1:29 PM CDT Height 26.02 08/09/2019 1:22 PM CDT Body Mass Index Plan of Treatment Health Maintenance Due Date Last Done Comments HIV Screening 1999 COVID-19 Vaccine (1) 2004 Pneumo-Vaccine: 65+Yrs (1 2005 - PCV) Pneumo-Vaccine: Peds (0-5 2005 Yrs) & At-Risk Patients (6-64 Yrs) (1 - PCV) HPV Vaccines (1 - 2-dose 2010 series) MenB Vaccine (Bexsero) (1 2015 of 2) Hepatitis C Screening 2017 DTaP,Tdap,and Td Vaccines 2018 (1 - Tdap) MMR Vaccines-Adult 2018 Cervical Cancer Screening 2020 Influenza Vaccine (Season 01/20/2022 Ended) Varicella Vaccines Completed 08/11/2011, 12/30/2004 HIB Vaccines Aged Out No longer eligible based on patient's age to complete this topic IPV Vaccines Aged Out No longer eligible based on patient's age to complete this topic Meningococcal Vaccine Aged Out No longer eligib le based on patient's age to complete this topic Rotavirus Vaccines Aged Out No longer eligible based on patient's age to complete this topic Results Not on filefrom Last 3 Months Insurance Type Payer Benefit Subscriber ID Effective Phone Address Plan / Dates Group [facility] 19 [id number] 2019-P [address] [address] [facility] 19 [id number] 2019- [address] [address] Advance Directives For more information, please contact: [phone] Patient Hearing Specialist Explanation Type Date Recorded Advance Directives and Living Will Power of Cash Management Associate Care Teams Start Date End Date Lubricating Specialist Relationship Specialty 07/30/19 Unassigned, None PCP - General MA 07/30/19 Ant Sheridan MD [employer] Person Obstetrics/ [address] [place], [place] [phone]
[2021-10-20 19:00] VITALS: BP 132/63
[2021-10-20 20:20] VITALS: BP 110/72
[2021-10-20] MEDS ORDERED: TERBUTALINE INJ 1 MG/ML (BRETHINE) AMP SC PRN (21:15)
[2021-10-20] MEDS ORDERED: NS IV 1000 ML 1,000 ML IV ONE (22:00)
[2021-10-20] MEDS ORDERED: CATHETER FLUSH 10 ML SYR IV SCH (22:00)
[2021-10-20 22:30] VITALS: BP 132/63
[2021-10-20] MEDS ORDERED: NS IV 1000 ML 1,000 ML ONE (22:30)
[2021-10-20 22:56] LABS: BASOPHILS % (AUTO) 0 % (0-10); EOSINOPHILS % (AUTO) 0 % (0-10); HEMATOCRIT 34 % (35-52); HEMOGLOBIN 11.3 g/dL (11.5-16.0); LYMPHOCYTES # (AUTO) 2.9 10^3/uL (1.0-4.0); LYMPHOCYTES % (AUTO) 28 % (12-44); MEAN CORPUSCULAR HEMOGLOBIN 29 pg (25-34); MEAN CORPUSCULAR HGB CONC 34 g/dL (32-36); MEAN CORPUSCULAR VOLUME 87 fL (80-99); MEAN PLATELET VOLUME 10.5 fL (9.0-12.2); MONOCYTES # (AUTO) 0.9 10^3/uL (0.0-1.0); MONOCYTES % (AUTO) 9 % (0-12); NEUTROPHILS # (AUTO) 6.4 10^3/uL (1.8-7.8); NEUTROPHILS % (AUTO) 62 % (42-75); PLATELET COUNT 191 10^3/uL (130-400); WHITE BLOOD COUNT 10.4 10^3/uL (4.3-11.0)
[2021-10-20] MEDS: D5 LR IV SOLUTION 1,000 ML IV SCH (23:55)
[2021-10-21] VITALS (56 sets, daily range): BP systolic 99–134; BP diastolic 54–79
[2021-10-21] MEDS ORDERED: FERR-84 PO (06:03)
--- NOTE | 2021-10-21 07:31 | History & Physical-OB ---
OB - Chief Complaint & HPI Date/Time Date of Admission: Date of Admission: Oct 20, 2021 at 18:36 Date seen by a Provider: Oct 21, 2021 Time Seen by a Provider: 07:10 Chief Complaint/History OB-Reason for Admission/Chief: Induction of Labor Hx : 4 Hx Para: 3 Expected Date of Delivery: Nov 03, 2021 Gestational Age in Weeks: 38 Gestational Age in Days: 1 Indication for induction: other (hx of IUFD at 38 weeks) Admission Nurse Assessment Rev: Yes Allergies and Home Medications Allergies Coded Allergies: No Known Drug Allergies (Unverified , 01/15/13) Patient Home Medication List Home Medication List Reviewed: Yes Ferrous Sulfate (Iron) 325 Mg (65 Mg Iron) Tablet, 325 MG PO DAILY, (Reported) Entered as Reported by: XANDER MCKEON on 10/21/21 0603 Last Action: New Order Vit No.124/Iron/FA ( Vitamin Tablet) 1 Each Tablet, 1 EACH PO DAILY, (Reported) Entered as Reported by: NADEGE WHATLEY on 05/31/172146 Last Action: Last Taken Edited OB - History Hx of Present Care: Yes Ultrasounds: Normal mid trimester US Obstetrical Complications: None Medical Complications: None Obstetrical History Hx Termination: No Hx Multiple Gestation: No Hx Stillbirth: No Hx Complication: No Hx Induced Hypertens: No Hx Maternal Gestational Diabet: No Delivery History Hx Dystocia: No Hx Large For Gestational Age I: Yes Hx Small for Gestational Age I: No Hx Section: No Hx Vaginal Delivery Post C-Sec: No Hx Blood Disorders: No Adverse Rxn to Tranfusion: No Patient Past Medical History NC Social History/Family History 2nd Hand Smoke Exposure: No Immunizations Influenza Vaccine Up-to-Date: No; Not Current Hepatitis A: No Hepatitis B: Yes Tetanus Booster (TDap): Less than 5yrs OB - Admission Exam Physical Exam Vitals: Vital Signs 10/21/21 10/21/21 10/21/21 00:00 04:15 05:00 Temp 36.2 Pulse 87 Resp 16 B/P (MAP) 108/57 (74) Pulse Ox 98 O2 Delivery Room Air HEENT: NCAT Heart: Rhythm Normal Lungs: Clear Abdomen: Gravid Extremities: Normal Reflexes: Normal Cervical Dilatation: 2cm Effacement: 75% Station: -1 Membranes: Intact Heart Rate: 130's Accelerations: Accelerations Present Decelerations: No Decelerations Short Term Variability: Present Assisted Variability: Average (6-25) Contractions on Admission: 6-10 Minutes Apart Intensity: Mild Labs Laboratory Tests Test 10/20/21 22:15 Range/Units White Blood Count 10.4 4.3-11.0 10^3/uL Red Blood Count 3.85 3.80-5.11 10^6/uL Hemoglobin 11.3 L 11.5-16.0 g/dL Hematocrit 34 L 35-52 % Mean Corpuscular Volume 87 80-99 fL Mean Corpuscular Hemoglobin 29 25-34 pg Mean Corpuscular Hemoglobin Concent 34 32-36 g/dL Red Cell Distribution Width 15.7 H 10.0-14.5 % Platelet Count 191 130-400 10^3/uL Mean Platelet Volume 10.5 9.0-12.2 fL Immature Granulocyte % (Auto) 1 % Neutrophils (%) (Auto) 62 42-75 % Lymphocytes (%) (Auto) 28 12-44 % Monocytes (%) (Auto) 9 0-12 % Eosinophils (%) (Auto) 0 0-10 % Basophils (%) (Auto) 0 0-10 % Neutrophils # (Auto) 6.4 1.8-7.8 10^3/uL Lymphocytes # (Auto) 2.9 1.0-4.0 10^3/uL Monocytes # (Auto) 0.9 0.0-1.0 10^3/uL Eosinophils # (Auto) 0.0 0.0-0.3 10^3/uL Basophils # (Auto) 0.0 0.0-0.1 10^3/uL Immature Granulocyte # (Auto) 0.1 0.0-0.1 10^3/uL OB - Assessment/Plan/Diagnosis Assessment Assessment: induction of labor Admission Dx 21 yo @ 38.1 Hx of Stillbirth at 38 weeks previous GBS neg Admission Status: Inpatient Order (span 2 midnights) Reason for Inpatient Admission: IOL at term Plan Plan: Induction Induction Method: per Misoprostol Protocol PAULA DOUGLASS DO Oct 21, 2021 07:31
[2021-10-21] MEDS ORDERED: OXYTOCIN PRE-MIX DRIP 500 ML IV SCH (07:45)
[2021-10-21] MEDS: D5 LR IV SOLUTION 1,000 ML IV SCH ×2 (07:48→15:48)
[2021-10-21] MEDS ORDERED: fentaNYL 2 mcg/ml BUPIVA 0.125 100 ML ONE (09:57)
[2021-10-21] MEDS ORDERED: LACTATED RINGERS 1,000 ML IV ONE (09:57)
[2021-10-21] MEDS ORDERED: NALOXONE 0.4 MG/ML 1 ML (NARCAN) VIAL IV PRN ×3 (11:45→17:15)
[2021-10-21] MEDS ORDERED: ONDANSETRON 4 MG/2 ML (SDV) Z0FRAN IV PRN (11:45)
[2021-10-21] MEDS ORDERED: EPIDURAL (fentaNYL 2 MCG/ML BUPIVA 0.125%)100 ML BAG EPI SCH (11:45)
[2021-10-21] MEDS ORDERED: diphenhydrAMINE 50 MG/ML INJ (BENADRYL) IV PRN (11:45)
[2021-10-21] MEDS ORDERED: METOCLOPRAMIDE INJ 10 MG/2 ML (REGLAN) IV PRN (11:45)
[2021-10-21] MEDS ORDERED: LACTATED RINGERS 1,000 ML IV SCH (11:45)
[2021-10-21] MEDS ORDERED: LIDOCAINE/EPI 2% 1:200,00 (XYLOCAINE) 10 ML VIAL ONE (16:38)
--- NOTE | 2021-10-21 17:10 | OB Labor & Delivery Record ---
L&D History Date of Service Date of Service: Oct 21, 2021 History Expected Date of Delivery: Nov 03, 2021 Gestational Age in Weeks: 38 Hx : 4 Hx Para: 3 Complications Events: Routine care Operative Indications (Cesarea: N/A-Vaginal Delivery Intrapartal Events: None L&D Stage1 Stage One Onset of Labor - Date: Oct 21, 2021 Monitors and Tracing Monitor Mode: External Heart Rate: 125 Monitor Accelerations: Uniform Monitor Decelerations: None Station: -2 Breaker Up Machine Operator Variability: Average (6-10) Short Term Variability: Present Presentation: Vertex Vital Signs VS - Last 72 Hours, by Label 10/20/21 10/20/21 10/20/21 10/20/21 19:00 20:20 21:20 22:20 Temp 36.6 36.5 Pulse 97 93 101 Resp 18 18 18 B/P (MAP) 132/63 (86) 110/72 (85) Pulse Ox 98 98 O2 Delivery Room Air Room Air Room Air Room Air 10/20/21 10/20/21 10/21/21 10/21/21 22:30 23:20 00:00 00:30 Temp 36.6 36.4 Pulse 97 89 Resp 18 16 B/P (MAP) 121/62 (81) Pulse Ox 98 98 O2 Delivery Room Air Room Air Room Air Room Air 10/21/21 10/21/21 10/21/21 10/21/21 01:00 01:30 02:00 03:00 O2 Delivery Room Air Room Air Room Air Room Air 10/21/21 10/21/21 10/21/21 10/21/21 04:00 04:15 05:00 07:58 Temp 36.2 36.4 Pulse 87 73 Resp 16 18 B/P (MAP) 108/57 (74) 104/55 (71) O2 Delivery Room Air Room Air Room Air Room Air 10/21/21 10/21/21 10/21/21 10/21/21 08:13 08:28 08:42 08:57 Pulse 82 76 80 91 Resp 18 18 18 18 B/P (MAP) 106/56 (73) 105/59 (74) 119/65 (83) 107/63 (78) O2 Delivery Room Air Room Air Room Air Room Air 6/210/21/21 10/21/21 10/21/21 09:15 09:27 09:42 09:57 Temp 36.4 Pulse 79 78 83 83 Resp 18 18 18 18 B/P (MAP) 109/59 (76) 106/59 (75) 111/64 (80) 113/65 (81) O2 Delivery Room Air Room Air Room Air Room Air 10/21/21 10/21/21 10/21/21 10/21/21 10:17 10:28 10:32 10:34 Pulse 82 88 82 86 Resp 18 18 18 18 B/P (MAP) 112/59 (76) 134/63 (86) 126/69 (88) 130/79 (96) Pulse Ox 99 O2 Delivery Room Air Room Air Room Air Room Air 10/21/21 10/21/21 10/21/21 10/21/21 10:37 10:40 10:45 10:50 Pulse 85 92 83 88 Resp 18 18 18 18 B/P (MAP) 117/59 (78) 118/57 (77) 116/55 (75) 111/60 (77) Pulse Ox 98 99 98 98 O2 Delivery Room Air Room Air Room Air Room Air 10/21/21 10/21/21 10/21/21 10/21/21 10:55 11:00 11:05 11:11 Pulse 89 85 86 96 Resp 18 18 18 18 B/P (MAP) 110/60 (77) 107/56 (73) 114/59 (77) 107/56 (73) Pulse Ox 98 97 98 98 O2 Delivery Room Air Room Air Room Air Room Air 10/21/21 10/21/21 10/21/21 10/21/21 11:16 11:20 11:25 11:31 Pulse 89 80 72 87 Resp 18 18 18 18 B/P (MAP) 102/56 (71) 105/58 (74) 118/63 (81) 106/57 (73) Pulse Ox 97 97 97 97 O2 Delivery Room Air Room Air Room Air Room Air 10/21/21 10/21/21 10/21/21 10/21/21 11:45 12:06 12:24 12:39 Pulse 83 71 79 78 Resp 18 18 18 18 B/P (MAP) 99/54 (69) 105/57 (73) 104/60 (75) 116/68 (84) Pulse Ox 97 97 96 98 O2 Delivery Room Air Room Air Room Air Room Air 10/21/21 10/21/21 10/21/21 10/21/21 12:52 13:09 13:23 13:38 Pulse 83 75 67 72 Resp 18 18 18 18 B/P (MAP) 101/54 (70) 105/62 (76) 111/55 (73) 110/54 (72) Pulse Ox 97 98 97 98 O2 Delivery Room Air Room Air Room Air Room Air 10/21/21 10/21/21 10/21/21 10/21/21 13:52 13:56 14:22 14:39 Temp 36.7 Pulse 83 76 75 Resp 18 18 18 B/P (MAP) 109/60 (76) 109/62 (78) 106/61 (76) Pulse Ox 98 97 97 O2 Delivery Room Air Room Air Room Air 10/21/21 10/21/21 10/21/21 10/21/21 14:54 15:08 15:22 15:38 Pulse 81 83 78 73 Resp 18 18 18 18 B/P (MAP) 105/57 (73) 122/74 (90) 106/58 (74) 116/54 (74) Pulse Ox 96 96 97 96 O2 Delivery Room Air Room Air Room Air Room Air 10/21/21 10/21/21 15:51 16:09 Temp 36.3 Pulse 72 82 Resp 18 18 B/P (MAP) 117/57 (77) 113/59 (77) Pulse Ox 95 98 O2 Delivery Room Air Room Air Rupture of Membranes Spontaneous Ruture of Membrane: No Amniotic Membrane Rupture Time: 0716 Amniotic Membrane Fluid Desc.: Clear Vaginal Bleeding Description: Normal Show Induction/Anesthesia Epidural Cath Placement - Time: 1035 Progress/Notes Patient admitted for IOL last night, misoprostol given overnight followed by AROM this AM and pitocin augmentation. She received an epidural and progressed to complete and +1 station. L&D Stage2 Stage Two Stage II Date: Oct 21, 2021 Monitors and Tracing Monitor Mode: External Heart Rate: 125 Monitor Accelerations: Uniform Monitor Decelerations: Variable Breaker Up Machine Operator Variability: Average (6-10) Short Term Variability: Present Position: Right Occiput Anterior Presentation: Vertex Cord Descript/Complications Cord Vessel Description: 3 Vessels Complications nuchal cord reduced x 1 Delivery Type Infant Delivery Method: Spontaneous Vaginal Anterior Shoulder: Left Episiotomy/Perineal Laceration Laceraction(s)/Extensions: No Condition of Delivery 1 minute Comment: 8 5 minute Comment: 9 Notes Live female weight 7lbs 15oz Condition of Condition of : Living Exam: No Observed Abnormalities Resuscitation Resuscitation: N/A - Spontaneous Resp L&D Stage3 Stage Three Stage III Date: Oct 21, 2021 Pictocin Pitocin Administration mu/min: 14 Pitocin ml/hr: 14 Pitocin Administration Comment: 30 mu wide open after delivery of placenta Placenta Delivery Placenta Delivery: Spontaneous Delivery Summary Summary Estimated blood loss (mL): 300 Attending at delivery: Paula Douglass DO Condition of Delivery Examined: Cervix Examined, Uterus Explored Post Hemorrhage: No Condition of Mother stable Condition of (s) stable PAULA DOUGLASS DO Oct 21, 2021 17:10
[2021-10-21] MEDS ORDERED: DIBUCAINE 1% OINTMENT 30 GM TUBE TOP PRN (17:15)
[2021-10-21] MEDS ORDERED: BENZOCAINE/MENTHOL (DERMOPLAST) 56 ML CAN TP PRN (17:15)
[2021-10-21] MEDS ORDERED: HYDROcodone/APAP 5 MG/325 MG (LORTAB) TAB PO PRN (17:15)
[2021-10-21] MEDS ORDERED: WITCH HAZEL(TUCKS) 40 EA JAR TOP PRN (17:15)
[2021-10-21] MEDS ORDERED: TETANUS,DIPTH,PERTUSS P/F (BOOSTRIX) 0.5 ML VIAL IM ONE (17:15)
[2021-10-21] MEDS ORDERED: MEASLES,MUMPS,RUBELLA 1 EA INJ SQ ONE (17:15)
[2021-10-21] MEDS: OXYTOCIN PRE-MIX DRIP 500 ML IV SCH (17:27)
[2021-10-21] MEDS: IBUPROFEN 600 MG (MOTRIN) TAB PO SCH (17:27)
[2021-10-21] MEDS: DOCUSATE SODIUM 100 MG (COLACE) CAP PO SCH (21:57)
[2021-10-21] MEDS ORDERED: CATHETER FLUSH 10 ML SYR IV SCH (22:00)
[2021-10-22 00:27] VITALS: BP 113/55
[2021-10-22] MEDS: IBUPROFEN 600 MG (MOTRIN) TAB PO SCH ×4 (00:28→18:09)
[2021-10-22 04:57] VITALS: BP 121/72
[2021-10-22 06:35] LABS: BASOPHILS % (AUTO) 0 % (0-10); EOSINOPHILS % (AUTO) 0 % (0-10); HEMATOCRIT 32 % (35-52); HEMOGLOBIN 10.6 g/dL (11.5-16.0); LYMPHOCYTES # (AUTO) 2.7 10^3/uL (1.0-4.0); LYMPHOCYTES % (AUTO) 29 % (12-44); MEAN CORPUSCULAR HEMOGLOBIN 29 pg (25-34); MEAN CORPUSCULAR HGB CONC 33 g/dL (32-36); MEAN CORPUSCULAR VOLUME 88 fL (80-99); MEAN PLATELET VOLUME 10.8 fL (9.0-12.2); MONOCYTES # (AUTO) 0.7 10^3/uL (0.0-1.0); MONOCYTES % (AUTO) 8 % (0-12); NEUTROPHILS # (AUTO) 5.9 10^3/uL (1.8-7.8); NEUTROPHILS % (AUTO) 62 % (42-75); PLATELET COUNT 176 10^3/uL (130-400); WHITE BLOOD COUNT 9.4 10^3/uL (4.3-11.0)
[2021-10-22] MEDS ORDERED: PRENATAL VITAMIN 1 EA TAB PO SCH (07:00)
[2021-10-22] MEDS: OXYTOCIN PRE-MIX DRIP 500 ML IV SCH (07:58)
[2021-10-22] MEDS: DOCUSATE SODIUM 100 MG (COLACE) CAP PO SCH (08:35)
[2021-10-22 08:38] VITALS: BP 121/60
[2021-10-22] MEDS ORDERED: FERROUS SULF 325 MG (IRON) TAB PO SCH (09:00)
--- NOTE | 2021-10-22 09:38 | Postpartum Progress Note ---
Note Note Day # 1 Subjective: Patient is without complaints. Ambulating, voiding. Tolerating a regular diet without nausea or vomiting. Normal lochia. Pain is well controlled with oral pain medications. Physical Exam: General - Alert and oriented, no apparent distress Abdomen - Soft, appropriately tender to palpation, non-distended, fundus firm at umbilicus Extremities - no edema, negative Roxana's bilaterally Assessment: Post- day # 1, status post vaginal delivery. Recovering well, hemodynamically stable Acute blood loss anemia Plan: Routine care. Encourage breast feeding. Encourage ambulation. Ferrous sulfate supplementation. Plan for discharge tomorrow Vitals - Labs Vital Signs - I&O Vital Signs Date Time Temp Pulse Resp B/P (MAP) Pulse Ox O2 Delivery O2 Flow Rate FiO2 10/22/21 04:57 36.3 76 18 121/72 (88) 98 Room Air 10/22/21 00:27 36.5 85 18 113/55 (74) 96 Room Air 10/21/21 21:56 36.5 81 18 110/57 (74) 96 Room Air 10/21/21 18:52 81 18 107/63 (78) Room Air 10/21/21 18:37 87 18 105/63 (77) Room Air 10/21/21 18:22 36.1 88 18 115/77 (90) Room Air 10/21/21 18:07 80 18 110/64 (79) Room Air 10/21/21 17:52 36.1 88 18 118/73 (88) Room Air 10/21/21 17:37 74 18 125/67 (86) Room Air 10/21/21 17:22 36.4 77 18 122/65 (84) Room Air 10/21/21 17:07 36.6 88 18 129/58 (81) Room Air 10/21/21 16:52 95 18 125/75 (92) 99 Room Air 10/21/21 16:43 36.7 10/21/21 16:37 85 18 114/69 (84) 97 Room Air 10/21/21 16:23 81 18 114/70 (85) 97 Room Air 10/21/21 16:09 36.3 82 18 113/59 (77) 98 Room Air 10/21/21 15:51 72 18 117/57 (77) 95 Room Air 10/21/21 15:38 73 18 116/54 (74) 96 Room Air 10/21/21 15:22 78 18 106/58 (74) 97 Room Air 10/21/21 15:08 83 18 122/74 (90) 96 Room Air 10/21/21 14:54 81 18 105/57 (73) 96 Room Air 10/21/21 14:39 75 18 106/61 (76) 97 Room Air 10/21/21 14:22 76 18 109/62 (78) 97 Room Air 10/21/21 13:56 36.7 10/21/21 13:52 83 18 109/60 (76) 98 Room Air 10/21/21 13:38 72 18 110/54 (72) 98 Room Air 10/21/21 13:23 67 18 111/55 (73) 97 Room Air 10/21/21 13:09 75 18 105/62 (76) 98 Room Air 10/21/21 12:52 83 18 101/54 (70) 97 Room Air 10/21/21 12:39 78 18 116/68 (84) 98 Room Air 10/21/21 12:24 79 18 104/60 (75) 96 Room Air 10/21/21 12:06 71 18 105/57 (73) 97 Room Air 10/21/21 11:45 83 18 99/54 (69) 97 Room Air 10/21/21 11:31 87 18 106/57 (73) 97 Room Air 10/21/21 11:25 72 18 118/63 (81) 97 Room Air 10/21/21 11:20 80 18 105/58 (74) 97 Room Air 10/21/21 11:16 89 18 102/56 (71) 97 Room Air 10/21/21 11:11 96 18 107/56 (73) 98 Room Air 10/21/21 11:05 86 18 114/59 (77) 98 Room Air 10/21/21 11:00 85 18 107/56 (73) 97 Room Air 10/21/21 10:55 89 18 110/60 (77) 98 Room Air 10/21/21 10:50 88 18 111/60 (77) 98 Room Air 10/21/21 10:45 83 18 116/55 (75) 98 Room Air 10/21/21 10:40 92 18 118/57 (77) 99 Room Air 10/21/21 10:37 85 18 117/59 (78) 98 Room Air 10/21/21 10:34 86 18 130/79 (96) Room Air 10/21/21 10:32 82 18 126/69 (88) 99 Room Air 10/21/21 10:28 88 18 134/63 (86) Room Air 10/21/21 10:17 82 18 112/59 (76) Room Air 10/21/21 09:57 36.4 83 18 113/65 (81) Room Air 10/21/21 09:42 83 18 111/64 (80) Room Air I & O 10/22/21 07:00 Intake Total 4000 ml Balance 4000 ml Labs Laboratory Tests 10/22/21 05:26: White Blood Count 9.4, Red Blood Count 3.61L, Hemoglobin 10.6L, Hematocrit 32L, Mean Corpuscular Volume 88, Mean Corpuscular Hemoglobin 29, Mean Corpuscular Hemoglobin Concent 33, Red Cell Distribution Width 15.5H, Platelet Count 176, Mean Platelet Volume 10.8, Immature Granulocyte % (Auto) 1, Neutrophils (%) (Auto) 62, Lymphocytes (%) (Auto) 29, Monocytes (%) (Auto) 8, Eosinophils (%) (Auto) 0, Basophils (%) (Auto) 0, Neutrophils # (Auto) 5.9, Lymphocytes # (Auto) 2.7, Monocytes # (Auto) 0.7, Eosinophils # (Auto) 0.0, Basophils # (Auto) 0.0, Immature Granulocyte # (Auto) 0.1 MJ OCHOA APRN Oct 22, 2021 09:38
[2021-10-22 12:17] VITALS: BP 114/55
--- NOTE | 2021-10-22 15:39 | Anesthesia-Regional Post-Op ---
Regional Patient Condition Mental Status: Alert, Oriented x3 Circulation: Same as Pre-Op Headache: Absent Sensation: Full Recovery Motor Block: Absent Post Op Complications Complications None Follow Up Care/Instructions Patient Instructions None needed. Anesthesia/Patient Condition Patient is doing well, no complaints, stable vital signs, no apparent adverse anesthesia problems. No complications reported per nursing. MEAGAN CARDENAS DO Oct 22, 2021 15:39
[2021-10-22 18:09] VITALS: BP 134/76
[2021-10-22] MEDS ORDERED: FERR-84 PO (18:31)
[2021-10-22] MEDS ORDERED: WTCHGPD TOP (18:31)
[2021-10-22] MEDS ORDERED: IBUP-844 PO (18:31)
[2021-10-22] MEDS ORDERED: BENZ78AE5 TP (18:31)
[2021-10-22] MEDS ORDERED: DOCU100C37 PO (18:31)
== END 2021-10-22 19:00 | disposition home or self-care (01) | DRG 806 ==
LOC: LDRP 18:36
PROVIDERS: ADMIT Obstetrics & Gynecology; ATTEND Obstetrics & Gynecology
PROC: 10E0XZZ Delivery of Products of Conception, External Approach (ICD-10-PCS; principal; 2021-10-21)
PROC: 10907ZC Drainage of Amniotic Fluid, Therapeutic from Products of Conception, Via Natural or Artificial Opening (ICD-10-PCS; 2021-10-21)
DX: O90.81 Anemia of the puerperium (principal); D62 Acute posthemorrhagic anemia; Z37.0 Single live birth; Z3A.38 38 weeks gestation of pregnancy
CPT/HCPCS: 36415; 85025; 86850; 86900; 86901

== ENCOUNTER 2022-05-17 17:55 | Emergency (ER) | payer MEDICAID ==
[~2022-05-17] VITALS: Ht 160 cm; Wt 76.0 kg
[~2022-05-17 17:55] MED LIST changes: +FERR-84 PO
--- NOTE | 2022-05-17 18:13 | ED General ---
General Chief Complaint: General Problems/Pain Stated Complaint: HEADACHE,DIZZY,BLURRED VISION Source of Information: Patient History of Present Illness Date Seen by Provider: May 17, 2022 Time Seen by Provider: 18:05 Initial Comments PT ARRIVES VIA POV FROM HOME C/O HEADACHE X 1 1/2 MONTHS--HEADACHE IS FROM RIGHT TMJ/METHODIST AREA TO RIGHT PARIETAL AREA OF HEAD--DULL ACHE ALSO HAS HAD DENTAL PAIN TO RIGHT UPPER MOLAR FOR APPROXIMATELY 1 1/2 MONTHS STATES SHE HAD MULTIPLE BAD TEETH, SHE HAS NOT SEEN A DENTIST AT ANY TIME FOR THESE ISSUES. STATES SHE HAS SEEN DR. COOK, DENTIST, BUT HE DOES NOT HAVE ANY OPENINGS UNTIL AUGUST, BUT PT STATES SHE DOES HAVE AN APPOINTMENT IN AUGUST FOR THIS PROBLEM VISION IS OCCASIONALLY SLIGHTLY BLURRY--RIGHT > LEFT, BUT NOT NOW SHE DOES OCCASIONALLY HAVE DIZZINESS ON CHANGING POSITIONS FROM SITTING TO STANDING, IF SHE STANDS UP TOO FAST. NO DIZZINESS NOW NO FEVER NO SINUS PAIN NO SWELLING TO FACE NO NAUSEA/VOMITING/DIARRHEA NO NECK PAIN OR STIFFNESS NO RECENT ILLNESS. NO PARESTHESIAS OR MOTOR DEFICITS TYLENOL HELPS BRIEFLY SHE HAS NOT TAKEN ANYTHING ELSE FOR PAIN AT ANY TIME WENT TO [facility] 05/10/22 FOR DENTAL PAIN. WAS GIVEN RX FOR AMOXIL. SHE HAS NOT TAKEN IT PRESCRIBED, AND STILL HAS 3-4 DAYS OF MEDICATION LEFT NO IMPROVEMENT IN SYMPTOMS SHE HAS NOT SOUGHT CARE AT ANY OTHER TIME FOR THIS PROBLEM SYMPTOMS ARE NO DIFFERENT TONIGHT IN ANY WAY STATES SHE HAS BEEN DOING "DR. HENSON" AND "GOT SCARED" SO SHE CAME HERE. LMP 05/05/22. NORMAL. NO CONTROL. DELIVERED 10/21/21. NOT PCP: [facility] DENTIST; DR. COOK Allergies and Home Medications Allergies Coded Allergies: No Known Drug Allergies (Unverified , 01/15/13) Patient Home Medication List Home Medication List Reviewed: Yes Benzocaine/Menthol (Dermoplast Pain Relieving [place]) 20 %-0.5 % Aerosol, 56 EA TP UD PRN for PAIN- SEE INSTRUCTIONS Prescribed by: CHANDNI CHAPMAN on 10/22/211830 Docusate Sodium (Docusate Sodium) 100 Mg Capsule, 100 MG PO BID Prescribed by: CHANDNI CHAPMAN on 10/22/211830 Ferrous Sulfate (Iron) 325 Mg (65 Mg Iron) Tablet, 325 MG PO DAILY Prescribed by: CHANDNI CHAPMAN on 10/22/211830 Ibuprofen (Ibu) 600 Mg Tablet, 600 MG PO Q6HR Prescribed by: CHANDNI CHAPMAN on 10/22/211830 Vit No.124/Iron/FA ( Vitamin Tablet) 1 Each Tablet, 1 EACH PO DAILY, (Reported) Entered as Reported by: NADEGE WHATLEY on 05/31/172146 Witch Lyssa/Glycerin (A.e.r Pads) 12.5 %-50 % Pad, 1 EA TOP UD PRN for PAIN- SEE INSTRUCTIONS Prescribed by: CHANDNI CHAPMAN on 10/22/211830 Review of Systems Review of Systems Constitutional: see HPI EENTM: see HPI Respiratory: no symptoms reported Cardiovascular: no symptoms reported Gastrointestinal: no symptoms reported Genitourinary: no symptoms reported : No LMP: May 05, 2022 Musculoskeletal: no symptoms reported; No neck pain Skin: no symptoms reported Psychiatric/Neurological: See HPI, Headache; Denies Numbness, Denies Paresthesia, Denies Seizure, Denies Tingling, Denies Tremors, Denies Weakness Hematologic/Lymphatic: No Symptoms Reported Immunological/Allergic: no symptoms reported Past [id number]-Fosnka Hx Patient Social History Tobacco Use?: Yes (1/2 PPD) Tobacco type used: Cigarettes Smoking Status: Current Everyday Smoker Use of E-Cig and/or Vaping dev: No Substance use?: Yes Substance type: Marijuana Substance frequency: Daily Alcohol Use?: No Immunizations Up To Date Tetanus Booster (TDap): Less than 5yrs PED Vaccines UTD: Yes Seasonal Allergies Seasonal Allergies: No Past Medical History Surgeries: Yes Gallbladder Respiratory: Yes Asthma Cardiac: No Neurological: No : No Reproductive Disorders: No Female Reproductive Disorders: Denies Sexually Transmitted Disease: No HIV/AIDS: No Genitourinary: No Gastrointestinal: Yes Gastroesophageal Reflux, Gall Bladder Disease Musculoskeletal: No Endocrine: No HEENT: No Loss of Vision: Denies Hearing Impairment: Denies Cancer: No Psychosocial: Yes Anxiety, Bipolar, Depression Integumentary: No Blood Disorders: No Adverse Reaction/Blood Tranf: No Family Medical History Alcoholism PATERNAL GRANDFATHER Arthritis MATERNAL GRANDMOTHER PATERNAL GRANDFATHER Cardiovascular disease 19 MOTHER MATERNAL GRANDMOTHER Cataracts MATERNAL GRANDMOTHER Completed stroke MATERNAL GRANDMOTHER Coronary thrombosis 19 MOTHER MATERNAL GRANDMOTHER Deafness or hearing loss PATERNAL GRANDFATHER Diabetes mellitus MATERNAL GRANDMOTHER PATERNAL GRANDMOTHER FH: macular degeneration MATERNAL GRANDMOTHER Headache disorder 19 MOTHER Hypertension MATERNAL GRANDMOTHER Leukemia MATERNAL GRANDMOTHER Myocardial infarction 19 MOTHER MATERNAL GRANDMOTHER Severe allergy G8 SISTER (BEES) Thyroid disease 19 MOTHER MATERNAL GRANDMOTHER Visual disorder MATERNAL GRANDMOTHER Physical Exam Vital Signs Vital Signs - First Documented 05/17/22 18:20 Temp 36.7 Pulse 117 Resp 16 B/P (MAP) 151/96 (114) Pulse Ox 98 O2 Delivery Room Air Capillary Refill : Height, Weight, BMI Height: 5'3.00" Weight: 182lbs. 0.0oz. 82.744100zk; 35.63 BMI Method:Stated General Appearance: No Apparent Distress, WD/WN, Other (WALKS UPRIGHT AND MOVES QUICKLY WITHOUT DIFFICULTY. DOES NOT APPEAR ILL OR TO BE IN ANY DISCOMFORT OR DISTRESS) HEENT: PERRL/EOMI, TMs Normal, Normal ENT Inspection, Pharynx Normal, Moist Mucous Membranes, Other (EXTENSIVE DENTAL CARIES--MOSTLY TO ALL MOLARS. NO FACIAL TENDERNESS. NO TMJ TENDERNESS OR TRISMUS. NO TENDERNESS OR SWELLING TO ANY PART OF FACE OR HEAD. ) Neck: Full Range of Motion, Normal Inspection, Non Tender, Supple Respiratory: Normal Breath Sounds, No Accessory Muscle Use, No Respiratory Distress Cardiovascular: Regular Rate, Rhythm, No Murmur Gastrointestinal: Non Tender, Soft Back: Normal Inspection Extremity: Normal Inspection Neurologic/Psychiatric: Alert, Oriented x3, No Motor/Sensory Deficits, Normal Mood/Affect, shoe packer II-XII Norm as Tested; No Abnormal Cerebellar Tests Skin: Normal Color, Warm/Dry; No Rash Progress/Results/Core Measures Suspected Sepsis SIRS Temperature: Pulse: Respiratory Rate: Laboratory Tests 05/17/22 18:20: White Blood Count 11.7H Blood Pressure / Mean: Laboratory Tests 05/17/22 18:20: Creatinine 0.79, Platelet Count 284, Total Bilirubin 0.2 Results/Orders Lab Results Laboratory Tests Test 05/17/22 18:20 Range/Units White Blood Count 11.7 H 4.3-11.0 10^3/uL Red Blood Count 4.89 3.80-5.11 10^6/uL Hemoglobin 14.7 11.5-16.0 g/dL Hematocrit 42 35-52 % Mean Corpuscular Volume 86 80-99 fL Mean Corpuscular Hemoglobin 30 25-34 pg Mean Corpuscular Hemoglobin Concent 35 32-36 g/dL Red Cell Distribution Width 12.2 10.0-14.5 % Platelet Count 284 130-400 10^3/uL Mean Platelet Volume 10.5 9.0-12.2 fL Immature Granulocyte % (Auto) 0 % Neutrophils (%) (Auto) 52 42-75 % Lymphocytes (%) (Auto) 41 12-44 % Monocytes (%) (Auto) 6 0-12 % Eosinophils (%) (Auto) 1 0-10 % Basophils (%) (Auto) 0 0-10 % Neutrophils # (Auto) 6.0 1.8-7.8 10^3/uL Lymphocytes # (Auto) 4.8 H 1.0-4.0 10^3/uL Monocytes # (Auto) 0.6 0.0-1.0 10^3/uL Eosinophils # (Auto) 0.2 0.0-0.3 10^3/uL Basophils # (Auto) 0.0 0.0-0.1 10^3/uL Immature Granulocyte # (Auto) 0.0 0.0-0.1 10^3/uL Erythrocyte Sedimentation Rate 11 0-20 MM/HR Urine Color YELLOW Urine Clarity CLEAR Urine pH 5.5 5-9 Urine Specific [place] 1.010 L 1.016-1.022 Urine Protein NEGATIVE NEGATIVE Urine Glucose (UA) NEGATIVE NEGATIVE Urine Ketones NEGATIVE NEGATIVE Urine Nitrite NEGATIVE NEGATIVE Urine Bilirubin NEGATIVE NEGATIVE Urine Urobilinogen 0.2 < = 1.0 MG/DL Urine Leukocyte Esterase NEGATIVE NEGATIVE Urine RBC (Auto) NEGATIVE NEGATIVE Urine RBC NONE /HPF Urine WBC NONE /HPF Urine Squamous Epithelial Cells RARE /HPF Urine Crystals NONE /LPF Urine Bacteria NEGATIVE /HPF Urine Casts NONE /LPF Urine Mucus NEGATIVE /LPF Urine Culture Indicated NO Urine Test NEGATIVE NEGATIVE Sodium Level 138 135-145 MMOL/L Potassium Level 4.1 3.6-5.0 MMOL/L Chloride Level 106 98-107 MMOL/L Carbon Dioxide Level 20 L 21-32 MMOL/L Anion Gap 12 5-14 MMOL/L Blood Urea Nitrogen 10 7-18 MG/DL Creatinine 0.79 0.60-1.30 MG/DL Estimat Glomerular Filtration Rate 108 BUN/Creatinine Ratio 13 Glucose Level 95 70-105 MG/DL Calcium Level 9.9 8.5-10.1 MG/DL Corrected Calcium 8.5-10.1 MG/DL Magnesium Level 2.0 1.6-2.4 MG/DL Total Bilirubin 0.2 0.1-1.0 MG/DL Aspartate Amino Transf (AST/SGOT) 23 5-34 U/L Alanine Aminotransferase (ALT/SGPT) 37 0-55 U/L Alkaline Phosphatase 64 40-136 U/L C-Reactive Protein High Sensitivity 0.23 0.00-0.50 MG/DL Total Protein 8.6 H 6.4-8.2 GM/DL Albumin 4.7 H 3.2-4.5 GM/DL Urine Opiates Screen NEGATIVE NEGATIVE Urine Oxycodone Screen NEGATIVE NEGATIVE Urine Methadone Screen NEGATIVE NEGATIVE Urine Propoxyphene Screen NEGATIVE NEGATIVE Urine Barbiturates Screen NEGATIVE NEGATIVE Ur Tricyclic Antidepressants Screen NEGATIVE NEGATIVE Urine Phencyclidine Screen NEGATIVE NEGATIVE Urine Amphetamines Screen NEGATIVE NEGATIVE Urine Methamphetamines Screen NEGATIVE NEGATIVE Urine Benzodiazepines Screen NEGATIVE NEGATIVE Urine Cocaine Screen NEGATIVE NEGATIVE Urine Cannabinoids Screen NEGATIVE NEGATIVE My Orders Orders - ALVIN OLIVIA DO Ed Iv/Invasive Line Start (05/17/22 18:12) Ct Head/Maxillofacial Wo (05/17/22 18:12) Cbc With Automated Diff (05/17/22 18:12) Comprehensive Metabolic Panel (05/17/22 18:12) Hs C Reactive Protein (05/17/22 18:12) Drug Screen Stat (Urine) (05/17/22 18:12) Magnesium (05/17/22 18:12) Ua Culture If Indicated (05/17/22 18:12) Erythrocyte Sedimentation Rate (05/17/22 18:12) Hcg,Qualitative Urine (05/17/22 18:36) Vital Signs/I&O 05/17/22 18:20 Temp 36.7 Pulse 117 Resp 16 B/P (MAP) 151/96 (114) Pulse Ox 98 O2 Delivery Room Air Capillary Refill : Progress Note : Progress Note PT REQUESTS LIQUID MEDICATION IF POSSIBLE--STATES SHE HAS A PROBLEM SWALLOWING PILLS UNEVENTFUL ER STAY BP 119/84 AT DISMISSAL, WITHOUT TREATMENT. REVIEWED ALL TEST RESULTS, ANTICIPATED COURSE, NEED FOR FOLLOW UP AND RETURN PRECAUTIONS DISCUSSED WITH PT Diagnostic Imaging Comments CT HEAD/MAXILLOFACIALS--PER RADIOLOGIST REPORT AT 1924 No prior studies are available for comparison. CT HEAD: Ventricles and sulci are within normal limits. No sulcal effacement or midline shift is identified. No acute intra-axial or extra-axial hemorrhage is detected. Cisterns are patent. Visualized paranasal sinuses are clear. Mastoids are well aerated. IMPRESSION: No acute intracranial process is detected. CT face: The mandible is intact. Zygomatic arches are intact. There is some mucosal thickening of the right maxillary sinus. No air-fluid levels are seen. Nasal bones and orbits are intact. The frontal sinus is hypoplastic. Ethmoid air cells and sphenoid sinus are well aerated. Mastoids are well aerated. There is some nasal septal deviation to the right. IMPRESSION: Mild mucosal thickening right maxillary sinus. The study is otherwise unremarkable. Reviewed: Reviewed by Me Departure Impression Primary Impression: HEADACHE Additional Impressions: Sinusitis Dental caries Disposition: HOME, SELF-CARE Condition: Stable Departure-Patient Inst. Decision time for Depature: 19:25 Referrals: PAULA DOUGLASS DO (PCP) Primary Care Physician [facility] (Family) Primary Care Physician Patient Instructions: Headache, Adult (DC), Sinusitis, Adult ED, Tooth Decay ED Add. Discharge Instructions: FOLLOW UP WITH DENTIST SOON POSSIBLE FOLLOW UP WITH [facility] IN 1 WEEK IF NO IMPROVEMENT TYLENOL 1 GRAM PLUS MOTRIN 800 MG EVERY 6 HOURS NEEDED FOR PAIN RETURN TO ER IF YOU DEVELOP NEW OR WORSENING SYMPTOMS All discharge instructions reviewed with patient and/or family. Voiced understanding. Scripts Butalb/Acetaminophen/Caffeine (Esgic 50-325-40 mg Tablet) 50 Mg-325 Mg-40 Mg Tablet 1-2 EACH PO Q6, #12 TAB Prov: AVLIN OLIVIA DO 05/17/22 Fluticasone Propionate (Flonase Allergy Relief) 50 Mcg/Actuation [place].susp 2 SPRAY NS DAILY, #1 EACH 2 SPRAYS PER NOSTRIL DAILY X 2 DAYS THEN 1 SPRAY DAILY Prov: ALVIN OLIVIA DO 05/17/22 Amoxicillin/Potassium Clav (Amox Tr-K Clv 400-57/5 Susp) 400 Mg-57 Mg/5 Ml Susp.recon 15 ML PO BID for 15 Days, #450 ML Prov: ALVIN OLIVIA DO 05/17/22 ALVIN OLIVIA DO May 17, 2022 18:13
[2022-05-17 18:28] LABS: BASOPHILS % (AUTO) 0 % (0-10); EOSINOPHILS # (AUTO) 0.2 10^3/uL (0.0-0.3); EOSINOPHILS % (AUTO) 1 % (0-10); HEMATOCRIT 42 % (35-52); HEMOGLOBIN 14.7 g/dL (11.5-16.0); LYMPHOCYTES # (AUTO) 4.8 10^3/uL (1.0-4.0); LYMPHOCYTES % (AUTO) 41 % (12-44); MEAN CORPUSCULAR HEMOGLOBIN 30 pg (25-34); MEAN CORPUSCULAR HGB CONC 35 g/dL (32-36); MEAN CORPUSCULAR VOLUME 86 fL (80-99); MEAN PLATELET VOLUME 10.5 fL (9.0-12.2); MONOCYTES # (AUTO) 0.6 10^3/uL (0.0-1.0); MONOCYTES % (AUTO) 6 % (0-12); NEUTROPHILS % (AUTO) 52 % (42-75); PLATELET COUNT 284 10^3/uL (130-400); WHITE BLOOD COUNT 11.7 10^3/uL (4.3-11.0)
[2022-05-17 18:31] LABS: BILIRUBIN,URINE NEGATIVE (NEGATIVE); CLARITY,URINE CLEAR; COLOR,URINE YELLOW; GLUCOSE, URINE (UA) NEGATIVE (NEGATIVE); KETONES,URINE NEGATIVE (NEGATIVE); LEUKOCYTE ESTERASE ,URINE NEGATIVE (NEGATIVE); NITRITE,URINE NEGATIVE (NEGATIVE); PH,URINE 5.5 (5-9); PROTEIN,URINE NEGATIVE (NEGATIVE)
[2022-05-17 18:38] LABS: BACTERIA,URINE NEGATIVE /HPF; SQUAMOUS EPITHELIAL CELL,UR RARE /HPF
[2022-05-17 18:39] LABS: ALBUMIN 4.7 GM/DL (3.2-4.5); CHLORIDE 106 MMOL/L (98-107); POTASSIUM 4.1 MMOL/L (3.6-5.0); SODIUM 138 MMOL/L (135-145)
[2022-05-17 18:41] LABS: CALCIUM 9.9 MG/DL (8.5-10.1)
[2022-05-17 18:42] LABS: GLUCOSE 95 MG/DL (70-105); TOTAL PROTEIN 8.6 GM/DL (6.4-8.2)
[2022-05-17 18:43] LABS: CARBON DIOXIDE 20 MMOL/L (21-32)
[2022-05-17 18:44] LABS: AMPHETAMINE SCREEN, URINE NEGATIVE (NEGATIVE); BARBITURATE SCREEN URINE NEGATIVE (NEGATIVE); BENZODIAZEPINES SCREEN URINE NEGATIVE (NEGATIVE); BILIRUBIN,TOTAL 0.2 MG/DL (0.1-1.0); CANNABINOID SCREEN, URINE NEGATIVE (NEGATIVE); COCAINE SCREEN URINE NEGATIVE (NEGATIVE); METHADONE STAT NEGATIVE (NEGATIVE); OPIATE SCREEN URINE NEGATIVE (NEGATIVE); OXYCODONE STAT NEGATIVE (NEGATIVE); PROPOXYPHENE STAT NEGATIVE (NEGATIVE); TRICYCLIC ANTIDEPRESSANTS SCRE NEGATIVE (NEGATIVE)
[2022-05-17 18:45] LABS: ALKALINE PHOSPHATASE 64 U/L (40-136)
[2022-05-17 18:46] LABS: CREATININE SERUM 0.79 MG/DL (0.60-1.30); GFR ESTIMATED 108
[2022-05-17 18:47] LABS: BUN/CREATININE RATIO 13; ERYTHROCYTE SEDIMENTATION RATE 11 MM/HR (0-20)
[2022-05-17 18:49] LABS: ALANINE AMINOTRANSFERASE 37 U/L (0-55)
--- NOTE | 2022-05-17 19:20 | Diagnostic Imaging Report ---
PROCEDURE: CT head and maxillofacial without contrast. TECHNIQUE: Multiple contiguous axial images were obtained through the head and facial bones without the use of intravenous contrast. Auto Exposure Controls were utilized during the CT exam to meet ALARA standards for radiation dose reduction. INDICATION: Head and facial pain. No prior studies are available for comparison. CT HEAD: Ventricles and sulci are within normal limits. No sulcal effacement or midline shift is identified. No acute intra-axial or extra-axial hemorrhage is detected. Cisterns are patent. Visualized paranasal sinuses are clear. Mastoids are well aerated. IMPRESSION: No acute intracranial process is detected. CT face: The mandible is intact. Zygomatic arches are intact. There is some mucosal thickening of the right maxillary sinus. No air-fluid levels are seen. Nasal bones and orbits are intact. The frontal sinus is hypoplastic. Ethmoid air cells and sphenoid sinus are well aerated. Mastoids are well aerated. There is some nasal septal deviation to the right. IMPRESSION: Mild mucosal thickening right maxillary sinus. The study is otherwise unremarkable. Dictated by: Dictated on workstation # [id number]
[2022-05-17] MEDS ORDERED: FLUT9.9S NS (19:33)
[2022-05-17] MEDS ORDERED: BUTA-249 PO (19:33)
[2022-05-17] MEDS ORDERED: AMOX400S8 PO (19:33)
[2022-05-17 19:50] VITALS: BP 119/78
== END 2022-05-17 19:50 | disposition home or self-care (01) ==
LOC: EDUNIT# 17:55 → ER 17:57
DX: J32.9 Chronic sinusitis, unspecified (principal); K02.9 Dental caries, unspecified; F17.210 Nicotine dependence, cigarettes, uncomplicated; Z28.310 Unvaccinated for COVID-19
CPT/HCPCS: 36415; 70450; 70486; 80053; 80306; 81000; 83735; 84703; 85025; 85652; 86141